=== PATIENT | male | born 1950 | race Caucasian/White ===

== ENCOUNTER 2025-04-14 17:52 | Observation (INO) ==
--- NOTE | 2025-04-14 18:30 | Emergency Department Note ---
Impression & Plan Stroke-like symptoms, Acute confusional state, Abnormal brain MRI, Elevated INR, MCI (mild cognitive impairment) ED Provider Note NAME: INGRIS FERGUSON AGE: 75 SEX: M : 1950 ARRIVES VIA: Walk-In INFORMANT: Patient ED PROVIDER(S): Sky Shaver MD CHIEF COMPLAINT: Acute confusion, stroke alert PLAN: Disposition: Admit MEDICAL DECISION MAKING: The patient is a pleasant 75-year-old gentleman with a past medical history of mild cognitive impairment, B12 deficiency, hypertension, hyperlipidemia, BPH who presents to the Emergency Department via walk-in accompanied by his for evaluation of acute onset confusion with last known well determined to be 2 PM. Patient's reports that at that time the patient told her he was going across the street to their newly purchased home where they are transferring their items from one house to the other. She reports that she noticed he was taking him in excess amount of time and went to check on him. However when she found him he was confused appearing staring blankly and would initially not respond/speak. Eventually he would speak but was confused about where he was. He then also complained of left-sided chest/shoulder pain while and route to the hospital but reports this had resolved upon arriving to triage. Given the patient's acute onset of symptoms stroke alert was activated And patient was taken immediately to CT for imaging. Upon completion of CT imaging it was determined that the patient was not a TNK candidate given he was outside of the TNK window given his last known well. Moreover his symptoms were rapidly improving. No clear large vessel occlusion and so telestroke monitor consultation was deferred. He was alert and oriented to self and place. His speech was fluent and was able to state that he lived in [place]. There was still some memory impairment where he could not recall his address which his reports he is usually able to do even in the setting of his diagnosis of mild cognitive impairment. They deny any regular alcohol use. On evaluation the patient no acute distress, afebrile blood pressure 150/70s and vital signs otherwise stable. He appears clinically dry. Mild memory impairment per above and otherwise cranial nerves II-XII grossly intact. 5/5 strength and SILT x 4 extremities. Cerebellar function intact including [id number], alternating palms, [id number]. EKG without overt acute ischemia. WBC and platelet within normal limits. H/H similar to prior values. Platelets within normal limits. Chemistry without metabolic acidosis. Sodium 133 and otherwise electrolytes and LFTs were unremarkable. High sensitivity troponin 6.7, within normal limits. INR was noted to be elevated at 1.9 despite no history or evidence of cirrhosis and not on anticoagulation. Given the patient's history of B12 deficiency suspect likely vitamin K deficiency. Vitamin K was ordered as a send out and is pending to inform outpatient follow- up. UA without evidence of infection. CT of the head and CTA of the head and neck radiology interpretation/reports were finalized and were negative for ischemia, severe narrowing or occlusion of large vessels. However, note is made of indeterminate nodular hyperdensity along the dorsal septum pellucidum. There is no associated vasogenic edema within the adjacent parenchyma and so hemorrhage is considered less likely but not completely excluded. Calcified lesion such as meningioma is considered. Additional small left subinsular white matter hypodensities are described. Small acute infarcts are not entirely excluded. Question of focal soft tissue scalp swelling is described though patient has no physical exam findings to suggest contusion. CTA of the chest also completed and was negative for acute aortic pathology. Coronary calcifications are described. Case was discussed with Dr. Villa, [facility] neurology on-call. Appreciate consultation recommendations. Agrees CT findings less likely to represent hemorrhage however agrees with follow-up imaging to characterize findings. Recommends MRI of the brain with and without contrast and he will review images to help inform final disposition of admission to our facility versus need for transfer. MRI of the brain subsequently completed and was reviewed by Dr. Villa. Findings are most consistent with calcified lesion within the septum pellucidum. Agrees patient can be admitted to our facility for further evaluation and management. Given context of the patient's symptoms with CT and MRI imaging showing component of atrophy and mildly enlarged ventricles seizure is considered. Recommends EEG in the morning. No need to initiate AED at this time unless the patient were to have a witnessed episode. Given elevated INR recommends holding aspirin for now. He will be available for inpatient team teleneurology consultation in the morning. Findings and plan were reviewed with the patient and his at the bedside. They agree with plan for admission for further management. Of note, in retrospect the patient did report to his today that he had "bumped" his head on a cabinet a couple days ago and has felt somewhat off since then. However his reports that she had noticed no change in his mentation or behavior up until this evening. Case was discussed with Dr. Nguyen [facility] hospitalist, who will evaluate the patient for admission. MRI of the brain report subsequently finalized and consistent with preliminary interpretation describing a small partially calcified and minimally enhancing lesion in the posterior septum pellucidum with differential that includes meningioma versus central neurocytoma. Further management per admitting team. Triage Nursing notes reviewed and agree them. Prior/external medical records reviewed Vital Signs: reviewed Differential diagnosis: Infection, dehydration, metabolic abnormality, hypo/hyperglycemia, electrolyte disturbance, anemia, hypoxia, cardiac sources, intracerebral event, toxicologic, neurologic, as well as other pathologies. ER treatment provided: See below. Diagnostics interpreted by me: ECG: Normal sinus rhythm, 71 bpm, no ectopy, no overt ST elevation or depression, QTc 436, QRS 86. Cardiac Monitoring: An order for continuous cardiac monitoring was placed and demonstrated normal sinus rhythm, 71 bpm, no ectopy. Laboratory studies: See below Imaging studies: See below Consultation(s): Dr. Villa, [facility] neurology on-call [facility]ada[facility] hospitalist. HPI: Per MDM. ROS: See above HPI for pertinent positives & negatives. A total of 10 systems reviewed and were otherwise negative. VITALS:See Below PHYSICAL EXAMINATION: GENERAL: Awake, alert,, in no distress HENT: Normocephalic, atraumatic. Oropharynx with dry mucous membranes and otherwise unremarkable. EYES: Normal conjunctiva. Sclera non-icteric. EOMI. No nystamgus. PEARRL. NECK: Supple. No nuchal rigidity. FROM. No JVD. RESPIRATORY: Clear to auscultation. CARDIAC: Regular rate, normal rhythm. Extremities warm and well perfused. Pulses equal. ABDOMEN: Soft, non-distended. No tenderness to palpation. No rebound or guarding. No masses. MUSCULOSKELETAL: Chest examination reveals no tenderness. The back is symmetrical on inspection without obvious abnormality. There is no CVA tenderness to palpation. No joint edema. LOWER EXTREMITIES: Calves are equal size bilaterally and non-tender. No edema. No discoloration. NEURO: Mild memory impairment with fluent speech. Cranial nerves II-XII grossly intact. 5/5 strength and SILT x 4 extremities. Cerebellar function intact including vbgjoe-[id number], alternating palms, ovqm-gr-pvvk. SKIN: No rash or jaundice noted. Sky Shaver MD Past Med/Surg History Problem List (Updated 04/15/25 @ 22:01 by Sky Shaver MD) Elevated INR (Acute) Abnormal brain MRI (Acute) Stroke-like symptoms (Acute) Seizure-like activity Brain lesion Concussion Acute confusional state (Acute) Hyponatremia Anemia Altered mental status, unspecified Vitamin B12 deficiency MCI (mild cognitive impairment) (Acute) CKD (chronic kidney disease) Status post spinal surgery (~2020) B/L L4-5 lumbar ,laminectomy, medial facetectomies, and foraminotomies Nocturia HTN (hypertension) CAD (coronary artery disease), [place] coronary artery (~1995) No family dentist. 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 Surgical History H/O colonoscopy 10/2016 repeat 10 yrs History of ankle surgery left > several yrs ago History of colonoscopy History of cardiac cath 1995> no stents Family History Father Lung cancer Denies family history of Ovarian cancer Prostate cancer Myocardial infarction Breast cancer Colorectal cancer Social History Smoking Status: Never smoker Second Hand Exposure: No; Do You Dip or Chew Tobacco: No; Hx Alcohol Use: No Hx Substance Use: No Preferred Language: Russian Communication Ability: Effective Visual Impairment: Limited Hearing Ability: Use of Hearing Aid Budget Record Clerk Required: No Beliefs That Will Affect Care: None marital status: Current Living Situation: Spouse current occupational status: retired How many Children do You have: 2 Feels Safe at Home: Yes Safety Concerns: Feels Safe At This Time Childhood Exposure to Second-Hand Smoke: Yes Diet: regular caffeine: Yes Dental Care, Regularly: Yes Physical Activity Frequency: 3-4 Times per Week Seatbelt Use: always Sunscreen Use: Yes Do you think of yourself as: straight/heterosexual Assistive Devices: None Allergies Allergies Allergy/AdvReac Type Severity Reaction Status Date / Time gabapentin Allergy Intermediate hives Verified 04/14/25 23:40 Sulfa (Sulfonamide Allergy Unknown Unknown Verified 04/14/25 23:40 Antibiotics) Home Meds Home Medications Medication Instructions Recorded Confirmed aspirin 81 mg tablet,delayed 81 mg PO DAILY 05/23/21 04/14/25 release (Adult Aspirin Regimen) vitamin B complex-folic acid ER tab PO 02/04/23 11/03/24 400 mcg tablet,extended release mecobalamin (vitamin B12) 1,000 500 mcg PO DAILY 02/05/23 04/14/25 mcg chewable tablet Previous Rx's Medication Instructions Recorded tamsulosin 0.4 mg capsule 0.4 mg PO DAILY #90 caps 06/30/24 lisinopril 5 mg tablet 5 mg PO DAILY #90 tabs 09/25/24 atorvastatin 80 mg tablet 80 mg PO DAILY #90 tabs 10/12/24 metoprolol succinate 50 mg 50 mg PO DAILY #90 tabs 12/31/24 tablet,extended release 24 hr Results & Data (ED) Vital Signs Vital Signs - 24 hr 04/14/25 22:00 04/14/25 22:58 04/14/25 23:00 Pulse Rate 68 Pulse Rate [Apical] 64 63 Respiratory Rate 17 18 Respiratory Effort / Characteristics Non-Labored Spontaneous Respiratory Depth Normal Respiratory Pattern Regular Blood Pressure [Right Arm] 133/73 129/73 Blood Pressure Mean [Right Arm] 93 91 Pulse Oximetry 96 98 Oxygen Delivery Method Room Air Room Air Laboratory Data Attestation: I reviewed the patient's lab results. 04/15/25 07:23 04/15/25 07:23 Lab Results 04/14/25 04/14/25 04/14/25 Range/Units 18:30 18:31 22:42 WBC 8.28 (4.8-10.8) K/ul RBC 4.06 L (4.70-6.10) M/uL Hgb 12.6 L (14.0-18.0) g/dl Hct 36.3 L (42.0-52.0) % MCV 89.4 (80.0-100.0) fL MCH 31.0 (25.0-34.0) pg MCHC 34.7 (32.0-36.0) g/dL RDW Std Deviation 41.7 (36.4-46.3) fL RDW Coeff of Terese 12.7 (11.5-14.5) % Plt Count 167 (130-400) K/uL MPV 8.9 L (9.4-12.4) fL Immature Gran % (Auto) 0.2 % Neut % (Auto) 79.6 % Lymph % (Auto) 12.4 % [place] % (Auto) 6.8 % Eos % (Auto) 0.6 % Baso % (Auto) 0.4 % Neut # (Auto) 6.59 H (1.40-6.50) K/uL Lymph # (Auto) 1.03 L (1.20-3.40) K/uL [place] # (Auto) 0.56 (0.11-0.59) K/uL Eos # (Auto) 0.05 (0.00-0.50) K/uL Baso # (Auto) 0.03 (0.00-0.20) K/uL Immature Gran # (Auto) 0.02 (0.01-0.20) K/uL PT 19.3 H 17.9 H (9.0-12.0) Seconds INR 1.9 H 1.7 H (0.9-1.1) APTT 27 (21-31) Seconds PTT Ratio 1.0 Sodium 133 L (136-145) mmol/L Potassium 4.0 (3.5-5.1) mmol/L Chloride 102 (98-107) mmol/L Carbon Dioxide 24 (21-32) mmol/L Anion Gap 7 (3-11) BUN 23 (6-23) mg/dl Creatinine 1.17 (0.6-1.4) mg/dl Est Cr Clr Drug Dosing 48.5 ml/min eGFR 64.61 BUN/Creatinine Ratio 19.7 (10-20) Glucose 98 (70-99(Fasting)) mg/dl POC Glucose 87 (70-99) mg/dl Calcium 8.7 (8.6-10.3) mg/dl Magnesium 1.7 (1.7-2.4) mg/dl Total Bilirubin 0.6 (0.2-1.0) mg/dl AST 20 (13-39) U/L ALT 20 (7-52) U/L Alkaline Phosphatase 37 (34-104) U/L Troponin I High Sens 6.7 (0-20) pg/ml Total Protein 6.3 (6.0-8.3) gm/dl Albumin 3.6 (3.4-5.0) gm/dl Globulin 2.7 (2.5-4.0) gm/dl Albumin/Globulin Ratio 1.3 (0.9-2) Administered Medications Acetaminophen (Acetaminophen 500 Mg Tab) 1,000 mg PO Q8H PRN PRN Reason: Pain or Fever Stop: 05/15/25 19:49 Last Admin: 04/15/25 20:10 Dose: 1,000 mg Documented By: HDC Aspirin (Aspirin 81 Mg Ectab) 81 mg PO DAILY MIRELA Stop: 05/15/25 08:59 Last Admin: 04/15/25 08:17 Dose: 81 mg Documented By: LMP Atorvastatin Calcium (Atorvastatin 40 Mg Tab) 80 mg PO DAILY MIRELA Stop: 05/15/25 08:59 Last Admin: 04/15/25 08:17 Dose: 80 mg Documented By: LMP Cyanocobalamin (Cyanocobalamin 1000 Mcg/Ml Vial) 1,000 mcg IM QAM MIRELA Stop: 04/19/25 09:01 Last Admin: 04/15/25 08:19 Dose: 1,000 mcg Documented By: LMP Lisinopril (Lisinopril 5 Mg Tab) 5 mg PO DAILY IMRELA Stop: 05/15/25 08:59 Last Admin: 04/15/25 08:18 Dose: 5 mg Documented By: LMP Discontinued Medications Gadobutrol (Gadobutrol 65ml Vial) 6.3 ml IV ONCE ONE Stop: 04/14/25 20:59 Last Admin: 04/14/25 20:59 Dose: 6.3 ml Documented By: [facility] Sodium Chloride (Nss) 1,000 mls @ 999 mls/hr IV .Q1H1M ONE Stop: 04/14/25 19:10 Last Infusion: 04/14/25 19:38 Dose: Infused Documented By: Admin: 04/14/25 18:33 Dose: 999 mls/hr Documented By: RANDY Ioversol (Optiray 320 125ml) 115 ml IV ONCE ONE Stop: 04/14/25 18:37 Last Admin: 04/14/25 18:36 Dose: 115 ml Documented By: [facility] Imaging Data Radiologist's Impression: Chest CTA 04/14/25 18:10 CT pulmonary angiogram without and with IV contrast. History: Severe left shoulder pain. Confusion. COMPARISON: Plain film correlate November 11, 2020. TECHNIQUE: CT angiography of the chest was performed without IV contrast followed by IV contrast, including 3D post processing CTA image reconstruction. FINDINGS: Pacs Administrator film demonstrates no appreciated abnormality. Lung windows demonstrate mild dependent subsegmental atelectasis. Lungs are otherwise clear. Soft tissue windows demonstrate dense calcified atherosclerotic changes coronary vasculature. Mild calcified atheromatous changes thoracic aorta without aneurysmal dilatation or dissection. Heart size is within normal limits. Pulmonary vasculature limited secondary to bolus timing. No gross abnormality at these levels. No pericardial or pleural effusions. No atheromatous changes included systemic vasculature. No acute process of the included upper abdomen. Bone windows demonstrate degenerative changes of the thoracic spine. No acute osseous process. IMPRESSION: 1. Mild atheromatous changes thoracic and included abdominal aorta without aneurysmal dilatation or dissection. 2. Dense calcified atherosclerotic changes coronary vasculature. No additional findings to indicate source of patient's symptoms. Electronically signed by Prince Mccullough 04-14-2025 7:10 PM Chest CTA 04/14/25 18:10 CT pulmonary angiogram without and with IV contrast. History: Severe left shoulder pain. Confusion. COMPARISON: Plain film correlate November 11, 2020. TECHNIQUE: CT angiography of the chest was performed without IV contrast followed by IV contrast, including 3D post processing CTA image reconstruction. FINDINGS: Pacs Administrator film demonstrates no appreciated abnormality. Lung windows demonstrate mild dependent subsegmental atelectasis. Lungs are otherwise clear. Soft tissue windows demonstrate dense calcified atherosclerotic changes coronary vasculature. Mild calcified atheromatous changes thoracic aorta without aneurysmal dilatation or dissection. Heart size is within normal limits. Pulmonary vasculature limited secondary to bolus timing. No gross abnormality at these levels. No pericardial or pleural effusions. No atheromatous changes included systemic vasculature. No acute process of the included upper abdomen. Bone windows demonstrate degenerative changes of the thoracic spine. No acute osseous process. IMPRESSION: 1. Mild atheromatous changes thoracic and included abdominal aorta without aneurysmal dilatation or dissection. 2. Dense calcified atherosclerotic changes coronary vasculature. No additional findings to indicate source of patient's symptoms. Electronically signed by Prince Mccullough 04-14-2025 7:[address] 04/14/25 18:10 EXAM: Head CT without contrast and CT angiogram of the head and neck. History: Patient complains that head feels tight. Confusion. Comparison: MR brain correlate February 15, 2022. Study report not available at the time of dictation. Technique: HEAD CT: Using multidetector thin collimation helical acquisition technique, axial, coronal and sagittal CT images from the skull base to the vertex were obtained without intravenous contrast. HEAD and NECK CTA: During rapid bolus intravenous injection of nonionic contrast material, axial images were obtained using thin collimation multidetector helical technique from the base of the neck through the of vertex of the head. This CT angiogram data was reconstructed at thin intervals with mild overlap. 3D reconstructions were obtained. The axial source images, multiplanar reformations, 3D reconstructions in both maximum intensity projection display and volume rendered models were reviewed. Dose reduction techniques were achieved by using automatic exposure control and/or adjustment of mA and/or kV according to patient size and/or use of iterative reconstruction technique. FINDINGS: Pacs Administrator film demonstrates no abnormality. Brain windows demonstrate there is a 1.3 cm greatest dimension focal hyperdensity along the posterior aspect of the septum pellucidum just ventral to the splenium of the corpus callosum. Ventricles and sulci are within normal limits for patient's age. Small hypodensities left subinsular white matter. These are nonspecific. No appreciable mass effect. Basal cisterns are patent. No additional hemorrhage, mass or acute large territorial infarct. No midline shift. Lung windows demonstrate clear included pulmonary apices. Soft tissue windows demonstrate prominent soft tissue volume and attenuation left parietal scalp. No discrete laceration or faustino hematoma. Vascular windows demonstrate portions of the exam to be limited secondary to dental amalgam artifact. Bilateral V4 segments are patent. Bilateral posterior inferior cerebellar arteries are patent. Basilar artery is patent. Bilateral posterior cerebral arteries are patent. Calcified atherosclerotic changes cavernous sinus internal carotid arteries. No appreciated significant hemodynamically flow-limiting disease. Anterior cerebral arteries are patent. Middle cerebral arteries are patent. Posterior communicating arteries are not identified. Normal 3 branches of the thoracic aorta noted. Dominant left vertebral artery. Bilateral vertebral arteries are patent. Moderate calcified atheromatous plaque right carotid bulb. No flow-limiting disease. Additional mild calcified atheromatous plaque left carotid vasculature. Bilateral common carotid, internal carotid and external carotid arteries are otherwise patent. Although limited due to bolus timing major dural venous sinuses are patent. No discrete abnormal intracranial enhancement. Particular at the level of the above-described posterior septum pellucid him hyperdensity. Bone windows demonstrate multilevel degenerative changes of the spine. Moderate spinal canal and moderate to marked foraminal stenoses. Impression: 1. Indeterminant nodular hyperdensity along the dorsal septum pellucidum. Focal hemorrhage cannot be excluded. Meningioma not excluded. Consider 6-hour follow-up noncontrast head CT or MRI. 2. Small left subinsular white matter hypodensities. These are nonspecific. Small acute infarcts cannot entirely be excluded. No appreciable mass effect. MRI would be helpful for further characterization. 3. No large vessel occlusion. 4. Calcified atheromatous plaque systemic neck vasculature without significant flow-limiting disease. 5. Hypoplastic bilateral posterior communicating arteries. Intracranial systemic vasculature is otherwise patent. 6. Although limited due to bolus timing no discrete enhancement of the above-described posterior septum pellucidum nodular hyperdensity. 7. Focal area of soft tissue scalp swelling left parietal region. No radiopaque foreign body or discrete laceration. Correlate with prior trauma history. 8. Multilevel degenerative changes of the spine. Moderate spinal canal and moderate to marked foraminal stenoses. MRI would be helpful for further characterization. Critical results were discussed with Dr. Shaver on April 14, 2025 at 1755 hrs. Central standard time. The study was analyzed using artificial intelligence software for large vessel occlusion detection. Electronically signed by Prince Mccullough 04-14-2025 7:02 PM Head CTA 04/14/25 18:10 EXAM: Head CT without contrast and CT angiogram of the head and neck. History: Patient complains that head feels tight. Confusion. Comparison: MR brain correlate February 15, 2022. Study report not available at the time of dictation. Technique: HEAD CT: Using multidetector thin collimation helical acquisition technique, axial, coronal and sagittal CT images from the skull base to the vertex were obtained without intravenous contrast. HEAD and NECK CTA: During rapid bolus intravenous injection of nonionic contrast material, axial images were obtained using thin collimation multidetector helical technique from the base of the neck through the of vertex of the head. This CT angiogram data was reconstructed at thin intervals with mild overlap. 3D reconstructions were obtained. The axial source images, multiplanar reformations, 3D reconstructions in both maximum intensity projection display and volume rendered models were reviewed. Dose reduction techniques were achieved by using automatic exposure control and/or adjustment of mA and/or kV according to patient size and/or use of iterative reconstruction technique. FINDINGS: Pacs Administrator film demonstrates no abnormality. Brain windows demonstrate there is a 1.3 cm greatest dimension focal hyperdensity along the posterior aspect of the septum pellucidum just ventral to the splenium of the corpus callosum. Ventricles and sulci are within normal limits for patient's age. Small hypodensities left subinsular white matter. These are nonspecific. No appreciable mass effect. Basal cisterns are patent. No additional hemorrhage, mass or acute large territorial infarct. No midline shift. Lung windows demonstrate clear included pulmonary apices. Soft tissue windows demonstrate prominent soft tissue volume and attenuation left parietal scalp. No discrete laceration or faustino hematoma. Vascular windows demonstrate portions of the exam to be limited secondary to dental amalgam artifact. Bilateral V4 segments are patent. Bilateral posterior inferior cerebellar arteries are patent. Basilar artery is patent. Bilateral posterior cerebral arteries are patent. Calcified atherosclerotic changes cavernous sinus internal carotid arteries. No appreciated significant hemodynamically flow-limiting disease. Anterior cerebral arteries are patent. Middle cerebral arteries are patent. Posterior communicating arteries are not identified. Normal 3 branches of the thoracic aorta noted. Dominant left vertebral artery. Bilateral vertebral arteries are patent. Moderate calcified atheromatous plaque right carotid bulb. No flow-limiting disease. Additional mild calcified atheromatous plaque left carotid vasculature. Bilateral common carotid, internal carotid and external carotid arteries are otherwise patent. Although limited due to bolus timing major dural venous sinuses are patent. No discrete abnormal intracranial enhancement. Particular at the level of the above-described posterior septum pellucid him hyperdensity. Bone windows demonstrate multilevel degenerative changes of the spine. Moderate spinal canal and moderate to marked foraminal stenoses. Impression: 1. Indeterminant nodular hyperdensity along the dorsal septum pellucidum. Focal hemorrhage cannot be excluded. Meningioma not excluded. Consider 6-hour follow-up noncontrast head CT or MRI. 2. Small left subinsular white matter hypodensities. These are nonspecific. Small acute infarcts cannot entirely be excluded. No appreciable mass effect. MRI would be helpful for further characterization. 3. No large vessel occlusion. 4. Calcified atheromatous plaque systemic neck vasculature without significant flow-limiting disease. 5. Hypoplastic bilateral posterior communicating arteries. Intracranial systemic vasculature is otherwise patent. 6. Although limited due to bolus timing no discrete enhancement of the above-described posterior septum pellucidum nodular hyperdensity. 7. Focal area of soft tissue scalp swelling left parietal region. No radiopaque foreign body or discrete laceration. Correlate with prior trauma history. 8. Multilevel degenerative changes of the spine. Moderate spinal canal and moderate to marked foraminal stenoses. MRI would be helpful for further characterization. Critical results were discussed with Dr. Shaver on April 14, 2025 at 1755 hrs. Central standard time. The study was analyzed using artificial intelligence software for large vessel occlusion detection. Electronically signed by Prince Mccullough 04-14-2025 7:03 PM Neck CTA 04/14/25 18:10 EXAM: Head CT without contrast and CT angiogram of the head and neck. History: Patient complains that head feels tight. Confusion. Comparison: MR brain correlate February 15, 2022. Study report not available at the time of dictation. Technique: HEAD CT: Using multidetector thin collimation helical acquisition technique, axial, coronal and sagittal CT images from the skull base to the vertex were obtained without intravenous contrast. HEAD and NECK CTA: During rapid bolus intravenous injection of nonionic contrast material, axial images were obtained using thin collimation multidetector helical technique from the base of the neck through the of vertex of the head. This CT angiogram data was reconstructed at thin intervals with mild overlap. 3D reconstructions were obtained. The axial source images, multiplanar reformations, 3D reconstructions in both maximum intensity projection display and volume rendered models were reviewed. Dose reduction techniques were achieved by using automatic exposure control and/or adjustment of mA and/or kV according to patient size and/or use of iterative reconstruction technique. FINDINGS: Pacs Administrator film demonstrates no abnormality. Brain windows demonstrate there is a 1.3 cm greatest dimension focal hyperdensity along the posterior aspect of the septum pellucidum just ventral to the splenium of the corpus callosum. Ventricles and sulci are within normal limits for patient's age. Small hypodensities left subinsular white matter. These are nonspecific. No appreciable mass effect. Basal cisterns are patent. No additional hemorrhage, mass or acute large territorial infarct. No midline shift. Lung windows demonstrate clear included pulmonary apices. Soft tissue windows demonstrate prominent soft tissue volume and attenuation left parietal scalp. No discrete laceration or faustino hematoma. Vascular windows demonstrate portions of the exam to be limited secondary to dental amalgam artifact. Bilateral V4 segments are patent. Bilateral posterior inferior cerebellar arteries are patent. Basilar artery is patent. Bilateral posterior cerebral arteries are patent. Calcified atherosclerotic changes cavernous sinus internal carotid arteries. No appreciated significant hemodynamically flow-limiting disease. Anterior cerebral arteries are patent. Middle cerebral arteries are patent. Posterior communicating arteries are not identified. Normal 3 branches of the thoracic aorta noted. Dominant left vertebral artery. Bilateral vertebral arteries are patent. Moderate calcified atheromatous plaque right carotid bulb. No flow-limiting disease. Additional mild calcified atheromatous plaque left carotid vasculature. Bilateral common carotid, internal carotid and external carotid arteries are otherwise patent. Although limited due to bolus timing major dural venous sinuses are patent. No discrete abnormal intracranial enhancement. Particular at the level of the above-described posterior septum pellucid him hyperdensity. Bone windows demonstrate multilevel degenerative changes of the spine. Moderate spinal canal and moderate to marked foraminal stenoses. Impression: 1. Indeterminant nodular hyperdensity along the dorsal septum pellucidum. Focal hemorrhage cannot be excluded. Meningioma not excluded. Consider 6-hour follow-up noncontrast head CT or MRI. 2. Small left subinsular white matter hypodensities. These are nonspecific. Small acute infarcts cannot entirely be excluded. No appreciable mass effect. MRI would be helpful for further characterization. 3. No large vessel occlusion. 4. Calcified atheromatous plaque systemic neck vasculature without significant flow-limiting disease. 5. Hypoplastic bilateral posterior communicating arteries. Intracranial systemic vasculature is otherwise patent. 6. Although limited due to bolus timing no discrete enhancement of the above-described posterior septum pellucidum nodular hyperdensity. 7. Focal area of soft tissue scalp swelling left parietal region. No radiopaque foreign body or discrete laceration. Correlate with prior trauma history. 8. Multilevel degenerative changes of the spine. Moderate spinal canal and moderate to marked foraminal stenoses. MRI would be helpful for further characterization. Critical results were discussed with Dr. Shaver on April 14, 2025 at 1755 hrs. Central standard time. The study was analyzed using artificial intelligence software for large vessel occlusion detection. Electronically signed by Prince Mccullough 04-14-2025 7:03 PM Brain MRI 04/14/25 20:06 Exam(s): MRI HEAD W/WO Contrast IV Amt: 6.3cc gadavist EXAM: MR Head Without and With Intravenous Contrast CLINICAL HISTORY: Reason for exam: stroke like sx/confusion, eval hyperdensity. OTHER: Other Notes: 6.3CC GADAVIST INJ. LEFT IV AT 2054 HRS. BY CMP R/O CVA CONFUSION PROP SCANS FOR MOTION TECHNIQUE: Magnetic resonance images of the head/brain without and with intravenous contrast in multiple planes. CONTRAST: Patient received 6.3cc gadavist of IV contrast COMPARISON: Prior head CT from April 14, 2025. FINDINGS: Brain: There is a partially calcified soft tissue lesion in the posterior septum pellucidum with minimal enhancement. No hemorrhage. No acute infarct. The flow voids at the base the brain are intact. No evidence of abnormal enhancement. The dural venous sinuses are patent. Ventricles: Unremarkable advanced ventriculomegaly. Bones/joints: Unremarkable. No acute fracture. Sinuses: Chronic ethmoid sinusitis. No acute sinusitis. Mastoid air cells: Unremarkable as visualized. No mastoid effusion. Orbits: Unremarkable as visualized. IMPRESSION: No evidence of acute intracranial pathology. Small partially calcified and minimally enhancing lesion in the posterior septum pellucidum. The differential diagnosis includes atypical meningioma or central neurocytoma. Electronically signed by: Nola Johnson MD 04/14/25 22:36 PM Discharge Plan Visit Data Chief Complaint: Arm Pain Stated Complaint: PAIN IN LT ARM CONFUSED ED Provider: Sky Shaver Discharge Problem: Stroke-like symptoms, Acute confusional state, Abnormal brain MRI, Elevated INR, MCI (mild cognitive impairment) Patient Disposition: Admitted As Inpatient Condition: Fair Discharge Instructions Interventions: ED Discharge Assessment Last Done: 04/15/25 00:55
[2025-04-14] MEDS: SODIUM CHLORIDE 0.9% 1,000 ML IV ONE (18:33)
[2025-04-14] MEDS: OPTIRAY 320 125ml IV ONE (18:36)
[2025-04-14 18:42] LABS: Hematocrit (blood only) 36.3 % (42.0-52.0); Hemoglobin 12.6 g/dl (14.0-18.0); Immature Granulocytes # (auto) 0.02 K/uL (0.01-0.20); Immature Granulocytes % (auto) 0.2 %; Mean Corpuscular Hemoglobin 31.0 pg (25.0-34.0); Mean Corpuscular Volume 89.4 fL (80.0-100.0); Platelet Count 167 K/uL (130-400); RDW Standard Deviation 41.7 fL (36.4-46.3); Red Blood Count 4.06 M/uL (4.70-6.10); White Blood Count 8.28 K/ul (4.8-10.8)
[2025-04-14 18:59] LABS: Alanine Aminotransferase 20.0 U/L (7-52); Albumin Globulin Ratio 1.3 (0.9-2); Albumin Level 3.6 gm/dl (3.4-5.0); Alkaline Phosphatase 37.0 U/L (34-104); Anion Gap 7.0 (3-11); Bilirubin,Total 0.6 mg/dl (0.2-1.0); Blood Urea Nitrogen 23.0 mg/dl (6-23); Calcium 8.7 mg/dl (8.6-10.3); Carbon Dioxide 24.0 mmol/L (21-32); Chloride 102.0 mmol/L (98-107); Creatinine Clr Calc Pharmacy 48.5 ml/min; Globulin 2.7 gm/dl (2.5-4.0); Glucose 98.0 mg/dl (70-99(Fasting)); Magnesium 1.7 mg/dl (1.7-2.4); Potassium 4.0 mmol/L (3.5-5.1); Sodium 133.0 mmol/L (136-145); Total Protein 6.3 gm/dl (6.0-8.3)
--- NOTE | 2025-04-14 19:04 | CT Scan Report ---
EXAM: Head CT without contrast and CT angiogram of the head and neck. History: Patient complains that head feels tight. Confusion. Comparison: MR brain correlate February 15, 2022. Study report not available at the time of dictation. Technique: HEAD CT: Using multidetector thin collimation helical acquisition technique, axial, coronal and sagittal CT images from the skull base to the vertex were obtained without intravenous contrast. HEAD and NECK CTA: During rapid bolus intravenous injection of nonionic contrast material, axial images were obtained using thin collimation multidetector helical technique from the base of the neck through the of vertex of the head. This CT angiogram data was reconstructed at thin intervals with mild overlap. 3D reconstructions were obtained. The axial source images, multiplanar reformations, 3D reconstructions in both maximum intensity projection display and volume rendered models were reviewed. Dose reduction techniques were achieved by using automatic exposure control and/or adjustment of mA and/or kV according to patient size and/or use of iterative reconstruction technique. 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 Brain windows demonstrate there is a 1.3 cm greatest dimension focal hyperdensity along the posterior aspect of the septum pellucidum just ventral to the splenium of the corpus callosum. Ventricles and sulci are within normal limits for patient's age. Small hypodensities left subinsular white matter. These are nonspecific. No appreciable mass effect. Basal cisterns are patent. No additional hemorrhage, mass or acute large territorial infarct. No midline shift. Lung windows demonstrate clear included pulmonary apices. Soft tissue windows demonstrate prominent soft tissue volume and attenuation left parietal scalp. No discrete laceration or faustino hematoma. Vascular windows demonstrate portions of the exam to be limited secondary to dental amalgam artifact. Bilateral V4 segments are patent. Bilateral posterior inferior cerebellar arteries are patent. Basilar artery is patent. Bilateral posterior cerebral arteries are patent. Calcified atherosclerotic changes cavernous sinus internal carotid arteries. No appreciated significant hemodynamically flow-limiting disease. Anterior cerebral arteries are patent. Middle cerebral arteries are patent. Posterior communicating arteries are not identified. Normal 3 branches of the thoracic aorta noted. Dominant left vertebral artery. Bilateral vertebral arteries are patent. Moderate calcified atheromatous plaque right carotid bulb. No flow-limiting disease. Additional mild calcified atheromatous plaque left carotid vasculature. Bilateral common carotid, internal carotid and external carotid arteries are otherwise patent. Although limited due to bolus timing major dural venous sinuses are patent. No discrete abnormal intracranial enhancement. Particular at the level of the above-described posterior septum pellucid him hyperdensity. Bone windows demonstrate multilevel degenerative changes of the spine. Moderate spinal canal and moderate to marked foraminal stenoses. Impression: 1. Indeterminant nodular hyperdensity along the dorsal septum pellucidum. Focal hemorrhage cannot be excluded. Meningioma not excluded. Consider 6-hour follow-up noncontrast head CT or MRI. 2. Small left subinsular white matter hypodensities. These are nonspecific. Small acute infarcts cannot entirely be excluded. No appreciable mass effect. MRI would be helpful for further characterization. 3. No large vessel occlusion. 4. Calcified atheromatous plaque systemic neck vasculature without significant flow-limiting disease. 5. Hypoplastic bilateral posterior communicating arteries. Intracranial systemic vasculature is otherwise patent. 6. Although limited due to bolus timing no discrete enhancement of the above-described posterior septum pellucidum nodular hyperdensity. 7. Focal area of soft tissue scalp swelling left parietal region. No radiopaque foreign body or discrete laceration. Correlate with prior trauma history. 8. Multilevel degenerative changes of the spine. Moderate spinal canal and moderate to marked foraminal stenoses. MRI would be helpful for further characterization. Critical results were discussed with Dr. Shaver on April 14, 2025 at 1755 hrs. Central standard time. The study was analyzed using artificial intelligence software for large vessel occlusion detection. Electronically signed by Prince Mccullough 04-14-2025 7:03 PM
--- NOTE | 2025-04-14 19:11 | CT Scan Report ---
CT pulmonary angiogram without and with IV contrast. History: Severe left shoulder pain. Confusion. COMPARISON: Plain film correlate November 11, 2020. TECHNIQUE: CT angiography of the chest was performed without IV contrast followed by IV contrast, including 3D post processing CTA image reconstruction. FINDINGS: Precision Thread Grinder Operator film demonstrates no appreciated abnormality. Lung windows demonstrate mild dependent subsegmental atelectasis. Lungs are otherwise clear. Soft tissue windows demonstrate dense calcified atherosclerotic changes coronary vasculature. Mild calcified atheromatous changes thoracic aorta without aneurysmal dilatation or dissection. Heart size is within normal limits. Pulmonary vasculature limited secondary to bolus timing. No gross abnormality at these levels. No pericardial or pleural effusions. No atheromatous changes included systemic vasculature. No acute process of the included upper abdomen. Bone windows demonstrate degenerative changes of the thoracic spine. No acute osseous process. IMPRESSION: 1. Mild atheromatous changes thoracic and included abdominal aorta without aneurysmal dilatation or dissection. 2. Dense calcified atherosclerotic changes coronary vasculature. No additional findings to indicate source of patient's symptoms. Electronically signed by Prince Mccullough 04-14-2025 7:10 PM
[2025-04-14 19:12] LABS: INR 1.9 (0.9-1.1); Partial Thromboplastin Time 27 Seconds (21-31); Prothrombin Time 19.3 Seconds (9.0-12.0)
[2025-04-14 19:57] LABS: Appearance Urine Clear (Clear); Glucose Urine UA Negative (Negative)
[2025-04-14] MEDS: GADOBUTROL 65ML VIAL IV ONE (20:59)
--- NOTE | 2025-04-14 21:54 | Neurology Consultation ---
Date of Consultation April 14, 2025 (955PM) Neurology Phone Note Assessment & Plan (1) Acute confusional state: 1. Acute confusional state, of undetermined etiology. Concern for partial seizure/post-ictal state. No evidence to suggest acute ischemic stroke. 2. Probable incidental midline posterior septum pellucidum region soft tissue lesion (? meningioma vs. other etiologies), per current CT(brain) and MRI(brain). 3. Reported mild cognitive impairment (MCI) history. Plan Recommendations: 1. Acute to hospital for further evaluation/management. Close neuro checks per protocol. Seizure/fall precautions. 2. Obtain routine EEG study in AM, to assess for any subclinical epileptiform activity. 3. Check additional metabolic labs regarding confusion. Follow serum Na closely. 4. Hold on anticonvulsant Rx at this point. 5. Follow-up on PT/PTT, with current INR 1.9. Hold low-dose aspirin Rx for now, until follow-up labs are obtained/reviewed. 6. TeleNeurology consult in AM. 7. Patient can also follow-up with [facility] Neurosurgery (? in-person visit vs. telehealth visit) regarding the incidental midline brain abnormality, which we can arrange after hospital discharge. Thank you for the TeleNeurology consult. If there are further questions or issues/concerns, please re-contact me. Total Time Spent: 60 minutes [reviewing current brain/vascular imaging studies, patient's EHR records and other diagnostic studies/labs, coordinating care with the ED physician, plus documentation]. Jose Roberto Villa MD Telehealth Consultation Telehealth Information Telehealth Information: Neurology Phone Consult: I performed this visit using a real-time telehealth connection between my location and the patients originating location ([facility]). History of Present Illness Reason for Consultation: Abnormal CT(brain) - ? meningioma vs. small acute posterior midline ICH Acute confusional state Requesting Physician: Dr. Shaver Attending Physician: Dr. Shaver History of Present Illness 75 year-old male, with acute confusional state, starting at approx. 2PM today [found by family]. No reported specific precipitating factors. No reported fall or head injury. Brought to the ED for further evaluation/management. Confusion reportedly decreased in the ED, and no reported focal sensorimotor deficits per ED physician. No witnessed overt seizure-type activity. No reported TIA/stroke history. On low-dose aspirin Rx (no reported anticoagulant Rx). No reported seizure history. History notable for mild cognitive impairment (MCI) per record review. Non-contrast CT(brain) and head/neck CTA studies were obtained. CT(brain) revealed small hyperdense abnormality in midline posterior septum pellucidum region (anterior to splenium of corpus callosum), which could represent small acute ICH vs. hyperdense lesion/? meningioma. CTA studies didn't reveal any evident significant abnormalities/large vessel occlusion. Allergies Allergy/AdvReac Type Severity Reaction Status Date / Time gabapentin Allergy Intermediate hives Verified 04/14/25 23:40 Sulfa (Sulfonamide Allergy Unknown Unknown Verified 04/14/25 23:40 Antibiotics) Home Medications Medication Instructions Recorded Confirmed Type aspirin 81 mg tablet,delayed 81 mg PO DAILY 05/23/21 04/14/25 History release (Adult Aspirin Regimen) vitamin B complex-folic acid ER tab PO 02/04/23 11/03/24 History 400 mcg tablet,extended release mecobalamin (vitamin B12) 1,000 500 mcg PO DAILY 02/05/23 04/14/25 History mcg chewable tablet tamsulosin 0.4 mg capsule 0.4 mg PO DAILY #90 caps 06/30/24 11/03/24 Rx lisinopril 5 mg tablet 5 mg PO DAILY #90 tabs 09/25/24 04/14/25 Rx atorvastatin 80 mg tablet 80 mg PO DAILY #90 tabs 10/12/24 04/14/25 Rx metoprolol succinate 50 mg 50 mg PO DAILY #90 tabs 12/31/24 Rx tablet,extended release 24 hr Patient History Medical History Sensorineural hearing loss (SNHL) of both ears Sensorineural hearing loss (SNHL) of left ear with restricted hearing of right ear Neck pain Degenerative disc disease 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 Surgical History H/O colonoscopy 10/2016 repeat 10 yrs History of ankle surgery left > several yrs ago History of colonoscopy History of cardiac cath 1995> no stents Family History Father Lung cancer Denies family history of Ovarian cancer Prostate cancer Myocardial infarction Breast cancer Colorectal cancer Social History Smoking Status: Never smoker Second Hand Exposure: No; Do You Dip or Chew Tobacco: No; Hx Alcohol Use: No Hx Substance Use: No Preferred Language: Setswana Communication Ability: Effective Visual Impairment: Limited Hearing Ability: Use of Hearing Aid Coal Hiker Required: No Beliefs That Will Affect Care: None marital status: Current Living Situation: Spouse current occupational status: retired How many Children do You have: 2 Feels Safe at Home: Yes Childhood Exposure to Second-Hand Smoke: Yes Diet: regular caffeine: Yes Dental Care, Regularly: Yes Physical Activity Frequency: 3-4 Times per Week Seatbelt Use: always Sunscreen Use: Yes Do you think of yourself as: straight/heterosexual Assistive Devices: None Results & Data Vital Signs (Past 12 Hours) Vital Signs Temp Pulse Pulse Resp BP BP Pulse Ox 04/14/25 19:40 71 20 118/78 97 04/14/25 19:12 71 04/14/25 18:28 74 17 150/76 H 100 04/14/25 17:59 36.6 C 68 18 150/73 H 98 O2 Del Method 04/14/25 19:40 Room Air 04/14/25 19:12 04/14/25 18:28 Room Air 04/14/25 17:59 Room Air Laboratory Results Various labs were reviewed. Notable for Na 133 and INR 1.9 (not reportedly on a nticoagulant Rx). Diagnostic Findings Current non-contrast CT(brain) plus head/neck CTA studies were personally reviewed. CT(brain) was notable for small hyperdense abnormality in midline posterior septum pellucidum region (anterior to splenium of corpus callosum), which could represent small acute ICH vs. hyperdense lesion/? meningioma. Head/neck CTA studies didn't reveal any evident significant large artery stenoses or occlusions. Subsequent unenhanced/enhanced MRI(brain) with stroke protocol was also personally reviewed. Again noted was the small midline posterior septum pellucidum region abnormality, most consistent with a soft tissue lesion (? meningioma vs. other etiologies) and not acute ICH. There was no evident notable abnormal enhancement in this area, or local mass effect/edema. There was also notable modest generalized cerebral atrophy and secondary ventriculomegaly (no evidence to suggest hydrocephalus). There were no evident acute ischemic stroke findings (negative DWI sequence). Total Time Total Time Spent (In Minutes): 60
--- NOTE | 2025-04-14 22:37 | Magnetic Resonance Report ---
Exam(s): MRI HEAD W/WO Contrast IV Amt: 6.3cc gadavist EXAM: MR Head Without and With Intravenous Contrast CLINICAL HISTORY: Reason for exam: stroke like sx/confusion, eval hyperdensity. OTHER: Other Notes: 6.3CC GADAVIST INJ. LEFT IV AT 2053 HRS. BY CMP R/O CVA CONFUSION PROP SCANS FOR MOTION TECHNIQUE: Magnetic resonance images of the head/brain without and with intravenous contrast in multiple planes. CONTRAST: Patient received 6.3cc gadavist of IV contrast COMPARISON: Prior head CT from April 14, 2025. FINDINGS: Brain: There is a partially calcified soft tissue lesion in the posterior septum pellucidum with minimal enhancement. No hemorrhage. No acute infarct. The flow voids at the base the brain are intact. No evidence of abnormal enhancement. The dural venous sinuses are patent. Ventricles: Unremarkable advanced ventriculomegaly. Bones/joints: Unremarkable. No acute fracture. Sinuses: Chronic ethmoid sinusitis. No acute sinusitis. Mastoid air cells: Unremarkable as visualized. No mastoid effusion. Orbits: Unremarkable as visualized. IMPRESSION: No evidence of acute intracranial pathology. Small partially calcified and minimally enhancing lesion in the posterior septum pellucidum. The differential diagnosis includes atypical meningioma or central neurocytoma. Electronically signed by: Nola Johnson MD 04/14/25 22:36 PM
--- NOTE | 2025-04-14 22:51 | History & Physical Report ---
Date of Service April 14, 2025 Assessment & Plan (1) Altered mental status, unspecified: (2) Anemia: (3) Vitamin B12 deficiency: (4) Hyponatremia: Plan 75-year-old male PMHx HTN, CAD, HLD, CAD, MCI, and BPH presenting for concerns of confusion as reported by the patient's at 1400. His evaluation is without significant electrolyte abnormalities with exception of slight anemia at 12.6/36.3, slightly elevated coagulation studies at 19.3/1.9 (PT/INR), and sodium of 133. Imaging of the chest shows atherosclerotic changes without aneurysmal dilatation or dissection. Head imaging (CT/CTA/MRI) with findings concerning of enhancing lesion in the posterior septum pellucidum, concern for atypical meningioma versus central neurocytoma per read. Admission for further workup, rule out seizure. #AMS/? Seizure Last known well 1400 per patient's . No prior history of CVA/TIA or seizures. Pt did hit his head ~ 2 days [employer]CR[employer], had felt dizzy and "fell into something, did not fall down", having some pain L head since. MCI at baseline. Without focal deficits. No infection identified at admission. History of Vitamin B12 deficiency, possibly impacting mental state, pending this level. ? post concussive vs ? seizure. Admission for further evaluation. - CBC without leukocytosis/leukopenia, H/H 12.6/36.3; PT/INR 19.3/1.9 (pending Vit K); CMP Na 133; trop 6.7; TSH pending - CBC, INR am - UA without infection - EKG NSR, no ischemic changes - Chest CTA mild arthromatous changes without aneurysmal dilatation or dissection - Head CT/CTA, neck CTA nodular hyperdensity along dorsal septum pellucidum, small L subinsular white matter hypodensities, no LVO, calcified atheromatous plaque systemic neck vasculature, hypoplastic bilateral posterior communicating arteries, focal area soft tissue scalp swelling L parietal region, multilevel degenerative changes spine - MRI brain no acute pathology, small lesion posterior septum pellucidum (? meningioma or central neurocytoma) - Seizure precautions, fall precautions - EEG pending am - Neuro consulted - appreciate input + recs #Anemia/Vitamin B12 deficiency Documented history of Vitamin B12 deficiency, takes 500 mcg orally each day. No recent bleeding. ? impact on mentation, pending levels but started on supplementation prophylactically. - CBC H/H 12.6/36.3 - trend CBC am - Iron panel, ferritin, vitamin B12, folate pending - Start vitamin B12 injections for total 5 doses, first 04/15/2025 -- Vit B12 1,000 mcg IM daily x 5 then transition to oral dose of 1,000 mcg #Hyponatremia Glucose WNL, received 500 mL NSS in ED. - Na 133 - BMP am - Serum osmol, urine Na, urine osmol pending - Allow oral intake, add IVF as appropriate #CAD- ASA - continue #HLD- Atorvastatin - continue #HTN- Lisinopril, ? metoprolol - continue lisinopril, then metoprolol once confirmed #BPH- ? Tamsulosin - continue once confirmed Dispo: Admit, PCU VTE prophylaxis: SCDs This document was dictated utilizing [employer]. Please excuse any grammatical errors that may be secondary to use of this software. Admission and Anticipated Discharge Date Admission Date: 04/14/2025 History of Present Illness Chief Complaint: AMS Primary Care Provider: Ovidio Lin, 75-year-old male PMHx HTN, CAD, HLD, CAD, MCI, and BPH presenting for concerns of confusion as reported by the patient's at 1400. Patient's , Sahra, helps to provide a majority of the history. States that the patient was in normal health and acting as expected throughout the morning of arrival. They had recently moved out of their old home and moved 10 houses down to a new home, so they are still in the process of moving items from 1 building to the next. His states that at 1400 the patient decided that he was going to drive down to the old house to collect some items to bring back to the new house. She recalls that approximately 2 hours after he had initially left, she was concerned because she had not heard from him or seeing the vehicle. She called him at approximately 1600 and the patient stated "I do not know where I am at, my head feels off". She went to find the patient and called the ambulance room to the hospital. He states he does not remember any events leading up to or following this lapse in memory, stating that the next thing he remembered was being at the hospital. He still feels slightly confused at present, but his states that he has been improving some. He does admit that approximately 2 days [employer] he was dealing with dizziness, described as vertigo, and he remembers hitting the left side of his head. He is unable to tell me if he fell and hit his head or if he smacked his head off of something else, he just states that it was hurting him after that. He also complains of posterior L shoulder pain that is rather pinpoint to 1 area, but again does not remember hitting this region. His states that throughout this episode she did not notice any jerking-like movements to indicate a seizure, no lipsmacking or auditory expressions. No facial droop or dysarthria noted. The patient was without focal deficits throughout this time. He stated that he possibly felt overall weak but this was around a day prior to the arrival. He is without chest pain, shortness of breath, palpitations, abdominal pain, N/V/D/C, numbness/tingling, fever/chills, URI symptoms, LUTS, syncope, known fall, weight loss, headaches, or night sweats. He has never had this happen before. No prior CVA/TIA, no history of seizures. ED evaluation revealed CBC without leukocytosis or leukopenia, H&H 12.6/36.3; PT/INR 19.3/1.9; CMP sodium 133; troponin 6.7; UA without infection; chest CTA mild atheromatous changes thoracic and included abdominal aorta without aneurysmal dilatation or dissection, dense calcified atherosclerotic changes coronary vasculature; head CT/CTA head and neck CTA indeterminate nodular hyperdensity along dorsal septum pellucidum, focal hemorrhage not excluded, meningioma not excluded, small L subinsular white matter hypodensities, no large vessel occlusion, calcified atheromatous plaque systemic neck vasculature without significant flow-limiting disease, hypoplastic bilateral posterior communicating arteries, focal area of soft tissue scalp swelling L parietal region, multilevel degenerative changes of the spine; brain MRI no evidence of acute intracranial pathology, small partially calcified minimally enhancing lesion in the posterior septum pellucidum (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 Please see Dr. Nguyen's attestation for adjustments/additions to treatment plan. Allergies Allergy/AdvReac Type Severity Reaction Status Date / Time gabapentin Allergy Intermediate hives Verified 04/14/25 23:40 Sulfa (Sulfonamide Allergy Unknown Unknown Verified 04/14/25 23:40 Antibiotics) Home Medications Medication Instructions Recorded Confirmed Type aspirin 81 mg tablet,delayed 81 mg PO DAILY 05/23/21 04/14/25 History release (Adult Aspirin Regimen) vitamin B complex-folic acid ER tab PO 02/04/23 11/03/24 History 400 mcg tablet,extended release mecobalamin (vitamin B12) 1,000 500 mcg PO DAILY 02/05/23 04/14/25 History mcg chewable tablet tamsulosin 0.4 mg capsule 0.4 mg PO DAILY #90 caps 06/30/24 11/03/24 Rx lisinopril 5 mg tablet 5 mg PO DAILY #90 tabs 09/25/24 04/14/25 Rx atorvastatin 80 mg tablet 80 mg PO DAILY #90 tabs 10/12/24 04/14/25 Rx metoprolol succinate 50 mg 50 mg PO DAILY #90 tabs 12/31/24 Rx tablet,extended release 24 hr Past Med/Surg History Problem List (Updated 04/14/25 @ 23:50 by Sammie Peng PA-C) Hyponatremia Anemia Altered mental status, unspecified Vitamin B12 deficiency MCI (mild cognitive impairment) CKD (chronic kidney disease) Status post spinal surgery (~2020) B/L L4-5 lumbar ,laminectomy, medial facetectomies, and foraminotomies Nocturia HTN (hypertension) CAD (coronary artery disease), [place] coronary artery (~1995) 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 Surgical History H/O colonoscopy 10/2016 repeat 10 yrs History of ankle surgery left > several yrs ago History of colonoscopy History of cardiac cath 1995> no stents Family History Father Lung cancer Denies family history of Ovarian cancer Prostate cancer Myocardial infarction Breast cancer Colorectal cancer Social History Smoking Status: Never smoker Second Hand Exposure: No; Do You Dip or Chew Tobacco: No; Hx Alcohol Use: Yes Alcohol type: wine Alcohol Intake Frequency: 2-3 x/Week Hx Substance Use: No Preferred Language: Japanese Communication Ability: Effective Visual Impairment: Limited Hearing Ability: Use of Hearing Aid Intern Architect Required: No Beliefs That Will Affect Care: None marital status: Current Living Situation: Spouse current occupational status: retired How many Children do You have: 2 Feels Safe at Home: Yes Childhood Exposure to Second-Hand Smoke: Yes Diet: regular caffeine: Yes Dental Care, Regularly: Yes Physical Activity Frequency: 3-4 Times per Week Seatbelt Use: always Sunscreen Use: Yes Do you think of yourself as: straight/heterosexual Assistive Devices: Glasses and Hearing Aid - Bilateral Review of Systems Review of Systems: All systems reviewed & are unremarkable except as noted in Subjective Physical Exam Physical Exam: General: No acute distress Skin: Warm and dry Head: Normocephalic, atraumatic Eyes: PERRL, conjunctivae clear, sclera non-icteric; wearing glasses ENT: External ear and ear canal without swelling; nose atraumatic; good dentition, tongue normal appearance, pharynx normal Neck: Supple, no LAD Cardio: RRR, no M/G/R, S1 and S2 normal Resp: No respiratory distress, Lungs CTA in all lobes bilaterally, no wheezes, rales, or rhonchi Abdomen: Soft, symmetric, nontender; No masses or hepatosplenomegaly; Bowel sounds normoactive MSK: Minimal discomfort to palpation L scapula, normal ROM; No deformities; pulses palpable and equal; no edema. Neuro: II- PERRL, no VF deficits III, IV, - EOMs intact, no deviation, no nystagmus V- Normal sensation in all locations VII- No asymmetry, no nasolabial fold flattening VIII- Normal hearing to speech IX, X- Normal palatal elevation, no ulnar deviation XI- 5/5 head turn + shoulder shrug bilaterally XII- Midline tongue protrusion Motor: 5/5 strength throughout BUE/BLE; no pronator drift Reflexes: WNL throughout, no clonus Sensory: Normal sensation throughout, no hemineglect, Romberg absent Coordination: Normal [id number], no tremor Gait: Unable to assess; no complaints Psych: Appears to be slightly confused with questioning; Appropriate mood; Where "[facility] [place], I don't know which one", when "January or February... 2027?", president "Lucille" , Sahra, present in room at time of visit. Results & Data Results & Data Vital Signs (Past 12 Hours) Vital Signs Temp Pulse Pulse Resp BP BP Pulse Ox 04/14/25 22:00 64 17 133/73 96 04/14/25 19:40 71 20 118/78 97 04/14/25 19:12 71 04/14/25 18:28 74 17 150/76 H 100 04/14/25 17:59 36.6 C 68 18 150/73 H 98 O2 Del Method 04/14/25 22:00 Room Air 04/14/25 19:40 Room Air 04/14/25 19:12 04/14/25 18:28 Room Air 04/14/25 17:59 Room Air Laboratory Results 04/14/25 04/14/25 04/14/25 Unknown 18:31 18:30 WBC 8.28 RBC 4.06 L Hgb 12.6 L Hct 36.3 L MCV 89.4 MCH 31.0 MCHC 34.7 RDW Std Deviation 41.7 RDW Coeff of Terese 12.7 Plt Count 167 MPV 8.9 L Immature Gran % (Auto) 0.2 Neut % (Auto) 79.6 Lymph % (Auto) 12.4 [place] % (Auto) 6.8 Eos % (Auto) 0.6 Baso % (Auto) 0.4 Neut # (Auto) 6.59 H Lymph # (Auto) 1.03 L [place] # (Auto) 0.56 Eos # (Auto) 0.05 Baso # (Auto) 0.03 Immature Gran # (Auto) 0.02 PT 19.3 H INR 1.9 H APTT 27 PTT Ratio 1.0 Sodium 133 L Potassium 4.0 Chloride 102 Carbon Dioxide 24 Anion Gap 7 BUN 23 Creatinine 1.17 Est Cr Clr Drug Dosing 48.5 eGFR 64.61 BUN/Creatinine Ratio 19.7 Glucose 98 POC Glucose 87 Calcium 8.7 Magnesium 1.7 Total Bilirubin 0.6 AST 20 ALT 20 Alkaline Phosphatase 37 Troponin I High Sens 6.7 Total Protein 6.3 Albumin 3.6 Globulin 2.7 Albumin/Globulin Ratio 1.3 Urine Color Yellow Urine Appearance Clear Urine pH 6.0 Ur Specific [place] 1.027 Urine Protein Negative Urine Glucose (UA) Negative Urine Ketones Trace H Urine Blood Negative Urine Nitrite Negative Urine Bilirubin Negative Urine Urobilinogen Negative Ur Leukocyte Esterase Negative Urine Comment Diagnostic Findings Chest CTA 04/14/25 18:10 CT pulmonary angiogram without and with IV contrast. History: Severe left shoulder pain. Confusion. COMPARISON: Plain film correlate November 11, 2020. TECHNIQUE: CT angiography of the chest was performed without IV contrast followed by IV contrast, including 3D post processing CTA image reconstruction. FINDINGS: Benefits Administrator film demonstrates no appreciated abnormality. Lung windows demonstrate mild dependent subsegmental atelectasis. Lungs are otherwise clear. Soft tissue windows demonstrate dense calcified atherosclerotic changes coronary vasculature. Mild calcified atheromatous changes thoracic aorta without aneurysmal dilatation or dissection. Heart size is within normal limits. Pulmonary vasculature limited secondary to bolus timing. No gross abnormality at these levels. No pericardial or pleural effusions. No atheromatous changes included systemic vasculature. No acute process of the included upper abdomen. Bone windows demonstrate degenerative changes of the thoracic spine. No acute osseous process. IMPRESSION: 1. Mild atheromatous changes thoracic and included abdominal aorta without aneurysmal dilatation or dissection. 2. Dense calcified atherosclerotic changes coronary vasculature. No additional findings to indicate source of patient's symptoms. Electronically signed by Prince Mccullough 04-14-2025 7:[address] 04/14/25 18:10 EXAM: Head CT without contrast and CT angiogram of the head and neck. History: Patient complains that head feels tight. Confusion. Comparison: MR brain correlate February 15, 2022. Study report not available at the time of dictation. Technique: HEAD CT: Using multidetector thin collimation helical acquisition technique, axial, coronal and sagittal CT images from the skull base to the vertex were obtained without intravenous contrast. HEAD and NECK CTA: During rapid bolus intravenous injection of nonionic contrast material, axial images were obtained using thin collimation multidetector helical technique from the base of the neck through the of vertex of the head. This CT angiogram data was reconstructed at thin intervals with mild overlap. 3D reconstructions were obtained. The axial source images, multiplanar reformations, 3D reconstructions in both maximum intensity projection display and volume rendered models were reviewed. Dose reduction techniques were achieved by using automatic exposure control and/or adjustment of mA and/or kV according to patient size and/or use of iterative reconstruction technique. FINDINGS: Benefits Administrator film demonstrates no abnormality. Brain windows demonstrate there is a 1.3 cm greatest dimension focal hyperdensity along the posterior aspect of the septum pellucidum just ventral to the splenium of the corpus callosum. Ventricles and sulci are within normal limits for patient's age. Small hypodensities left subinsular white matter. These are nonspecific. No appreciable mass effect. Basal cisterns are patent. No additional hemorrhage, mass or acute large territorial infarct. No midline shift. Lung windows demonstrate clear included pulmonary apices. Soft tissue windows demonstrate prominent soft tissue volume and attenuation left parietal scalp. No discrete laceration or faustino hematoma. Vascular windows demonstrate portions of the exam to be limited secondary to dental amalgam artifact. Bilateral V4 segments are patent. Bilateral posterior inferior cerebellar arteries are patent. Basilar artery is patent. Bilateral posterior cerebral arteries are patent. Calcified atherosclerotic changes cavernous sinus internal carotid arteries. No appreciated significant hemodynamically flow-limiting disease. Anterior cerebral arteries are patent. Middle cerebral arteries are patent. Posterior communicating arteries are not identified. Normal 3 branches of the thoracic aorta noted. Dominant left vertebral artery. Bilateral vertebral arteries are patent. Moderate calcified atheromatous plaque right carotid bulb. No flow-limiting disease. Additional mild calcified atheromatous plaque left carotid vasculature. Bilateral common carotid, internal carotid and external carotid arteries are otherwise patent. Although limited due to bolus timing major dural venous sinuses are patent. No discrete abnormal intracranial enhancement. Particular at the level of the above-described posterior septum pellucid him hyperdensity. Bone windows demonstrate multilevel degenerative changes of the spine. Moderate spinal canal and moderate to marked foraminal stenoses. Impression: 1. Indeterminant nodular hyperdensity along the dorsal septum pellucidum. Focal hemorrhage cannot be excluded. Meningioma not excluded. Consider 6-hour follow-up noncontrast head CT or MRI. 2. Small left subinsular white matter hypodensities. These are nonspecific. Small acute infarcts cannot entirely be excluded. No appreciable mass effect. MRI would be helpful for further characterization. 3. No large vessel occlusion. 4. Calcified atheromatous plaque systemic neck vasculature without significant flow-limiting disease. 5. Hypoplastic bilateral posterior communicating arteries. Intracranial systemic vasculature is otherwise patent. 6. Although limited due to bolus timing no discrete enhancement of the above-described posterior septum pellucidum nodular hyperdensity. 7. Focal area of soft tissue scalp swelling left parietal region. No radiopaque foreign body or discrete laceration. Correlate with prior trauma history. 8. Multilevel degenerative changes of the spine. Moderate spinal canal and moderate to marked foraminal stenoses. MRI would be helpful for further characterization. Critical results were discussed with Dr. Shaver on April 14, 2025 at 1755 hrs. Central standard time. The study was analyzed using artificial intelligence software for large vessel occlusion detection. Electronically signed by Prince Mccullough 04-14-2025 7:02 PM Head CTA 04/14/25 18:10 EXAM: Head CT without contrast and CT angiogram of the head and neck. History: Patient complains that head feels tight. Confusion. Comparison: MR brain correlate February 15, 2022. Study report not available at the time of dictation. Technique: HEAD CT: Using multidetector thin collimation helical acquisition technique, axial, coronal and sagittal CT images from the skull base to the vertex were obtained without intravenous contrast. HEAD and NECK CTA: During rapid bolus intravenous injection of nonionic contrast material, axial images were obtained using thin collimation multidetector helical technique from the base of the neck through the of vertex of the head. This CT angiogram data was reconstructed at thin intervals with mild overlap. 3D reconstructions were obtained. The axial source images, multiplanar reformations, 3D reconstructions in both maximum intensity projection display and volume rendered models were reviewed. Dose reduction techniques were achieved by using automatic exposure control and/or adjustment of mA and/or kV according to patient size and/or use of iterative reconstruction technique. FINDINGS: Benefits Administrator film demonstrates no abnormality. Brain windows demonstrate there is a 1.3 cm greatest dimension focal hyperdensity along the posterior aspect of the septum pellucidum just ventral to the splenium of the corpus callosum. Ventricles and sulci are within normal limits for patient's age. Small hypodensities left subinsular white matter. These are nonspecific. No appreciable mass effect. Basal cisterns are patent. No additional hemorrhage, mass or acute large territorial infarct. No midline shift. Lung windows demonstrate clear included pulmonary apices. Soft tissue windows demonstrate prominent soft tissue volume and attenuation left parietal scalp. No discrete laceration or faustino hematoma. Vascular windows demonstrate portions of the exam to be limited secondary to dental amalgam artifact. Bilateral V4 segments are patent. Bilateral posterior inferior cerebellar arteries are patent. Basilar artery is patent. Bilateral posterior cerebral arteries are patent. Calcified atherosclerotic changes cavernous sinus internal carotid arteries. No appreciated significant hemodynamically flow-limiting disease. Anterior cerebral arteries are patent. Middle cerebral arteries are patent. Posterior communicating arteries are not identified. Normal 3 branches of the thoracic aorta noted. Dominant left vertebral artery. Bilateral vertebral arteries are patent. Moderate calcified atheromatous plaque right carotid bulb. No flow-limiting disease. Additional mild calcified atheromatous plaque left carotid vasculature. Bilateral common carotid, internal carotid and external carotid arteries are otherwise patent. Although limited due to bolus timing major dural venous sinuses are patent. No discrete abnormal intracranial enhancement. Particular at the level of the above-described posterior septum pellucid him hyperdensity. Bone windows demonstrate multilevel degenerative changes of the spine. Moderate spinal canal and moderate to marked foraminal stenoses. Impression: 1. Indeterminant nodular hyperdensity along the dorsal septum pellucidum. Focal hemorrhage cannot be excluded. Meningioma not excluded. Consider 6-hour follow-up noncontrast head CT or MRI. 2. Small left subinsular white matter hypodensities. These are nonspecific. Small acute infarcts cannot entirely be excluded. No appreciable mass effect. MRI would be helpful for further characterization. 3. No large vessel occlusion. 4. Calcified atheromatous plaque systemic neck vasculature without significant flow-limiting disease. 5. Hypoplastic bilateral posterior communicating arteries. Intracranial systemic vasculature is otherwise patent. 6. Although limited due to bolus timing no discrete enhancement of the above-described posterior septum pellucidum nodular hyperdensity. 7. Focal area of soft tissue scalp swelling left parietal region. No radiopaque foreign body or discrete laceration. Correlate with prior trauma history. 8. Multilevel degenerative changes of the spine. Moderate spinal canal and moderate to marked foraminal stenoses. MRI would be helpful for further characterization. Critical results were discussed with Dr. Shaver on April 14, 2025 at 1755 hrs. Central standard time. The study was analyzed using artificial intelligence software for large vessel occlusion detection. Electronically signed by Prince Mccullough 04-14-2025 7:03 PM Neck CTA 04/14/25 18:10 EXAM: Head CT without contrast and CT angiogram of the head and neck. History: Patient complains that head feels tight. Confusion. Comparison: MR brain correlate February 15, 2022. Study report not available at the time of dictation. Technique: HEAD CT: Using multidetector thin collimation helical acquisition technique, axial, coronal and sagittal CT images from the skull base to the vertex were obtained without intravenous contrast. HEAD and NECK CTA: During rapid bolus intravenous injection of nonionic contrast material, axial images were obtained using thin collimation multidetector helical technique from the base of the neck through the of vertex of the head. This CT angiogram data was reconstructed at thin intervals with mild overlap. 3D reconstructions were obtained. The axial source images, multiplanar reformations, 3D reconstructions in both maximum intensity projection display and volume rendered models were reviewed. Dose reduction techniques were achieved by using automatic exposure control and/or adjustment of mA and/or kV according to patient size and/or use of iterative reconstruction technique. FINDINGS: Benefits Administrator film demonstrates no abnormality. Brain windows demonstrate there is a 1.3 cm greatest dimension focal hyperdensity along the posterior aspect of the septum pellucidum just ventral to the splenium of the corpus callosum. Ventricles and sulci are within normal limits for patient's age. Small hypodensities left subinsular white matter. These are nonspecific. No appreciable mass effect. Basal cisterns are patent. No additional hemorrhage, mass or acute large territorial infarct. No midline shift. Lung windows demonstrate clear included pulmonary apices. Soft tissue windows demonstrate prominent soft tissue volume and attenuation left parietal scalp. No discrete laceration or faustino hematoma. Vascular windows demonstrate portions of the exam to be limited secondary to dental amalgam artifact. Bilateral V4 segments are patent. Bilateral posterior inferior cerebellar arteries are patent. Basilar artery is patent. Bilateral posterior cerebral arteries are patent. Calcified atherosclerotic changes cavernous sinus internal carotid arteries. No appreciated significant hemodynamically flow-limiting disease. Anterior cerebral arteries are patent. Middle cerebral arteries are patent. Posterior communicating arteries are not identified. Normal 3 branches of the thoracic aorta noted. Dominant left vertebral artery. Bilateral vertebral arteries are patent. Moderate calcified atheromatous plaque right carotid bulb. No flow-limiting disease. Additional mild calcified atheromatous plaque left carotid vasculature. Bilateral common carotid, internal carotid and external carotid arteries are otherwise patent. Although limited due to bolus timing major dural venous sinuses are patent. No discrete abnormal intracranial enhancement. Particular at the level of the above-described posterior septum pellucid him hyperdensity. Bone windows demonstrate multilevel degenerative changes of the spine. Moderate spinal canal and moderate to marked foraminal stenoses. Impression: 1. Indeterminant nodular hyperdensity along the dorsal septum pellucidum. Focal hemorrhage cannot be excluded. Meningioma not excluded. Consider 6-hour follow-up noncontrast head CT or MRI. 2. Small left subinsular white matter hypodensities. These are nonspecific. Small acute infarcts cannot entirely be excluded. No appreciable mass effect. MRI would be helpful for further characterization. 3. No large vessel occlusion. 4. Calcified atheromatous plaque systemic neck vasculature without significant flow-limiting disease. 5. Hypoplastic bilateral posterior communicating arteries. Intracranial systemic vasculature is otherwise patent. 6. Although limited due to bolus timing no discrete enhancement of the above-described posterior septum pellucidum nodular hyperdensity. 7. Focal area of soft tissue scalp swelling left parietal region. No radiopaque foreign body or discrete laceration. Correlate with prior trauma history. 8. Multilevel degenerative changes of the spine. Moderate spinal canal and moderate to marked foraminal stenoses. MRI would be helpful for further characterization. Critical results were discussed with Dr. Shaver on April 14, 2025 at 1755 hrs. Central standard time. The study was analyzed using artificial intelligence software for large vessel occlusion detection. Electronically signed by Prince Mccullough 04-14-2025 7:03 PM Brain MRI 04/14/25 20:06 Exam(s): MRI HEAD W/WO Contrast IV Amt: 6.3cc gadavist EXAM: MR Head Without and With Intravenous Contrast CLINICAL HISTORY: Reason for exam: stroke like sx/confusion, eval hyperdensity. OTHER: Other Notes: 6.3CC GADAVIST INJ. LEFT IV AT 4 HRS. BY [facility] R/O CVA CONFUSION PROP SCANS FOR MOTION TECHNIQUE: Magnetic resonance images of the head/brain without and with intravenous contrast in multiple planes. CONTRAST: Patient received 6.3cc gadavist of IV contrast COMPARISON: Prior head CT from April 14, 2025. FINDINGS: Brain: There is a partially calcified soft tissue lesion in the posterior septum pellucidum with minimal enhancement. No hemorrhage. No acute infarct. The flow voids at the base the brain are intact. No evidence of abnormal enhancement. The dural venous sinuses are patent. Ventricles: Unremarkable advanced ventriculomegaly. Bones/joints: Unremarkable. No acute fracture. Sinuses: Chronic ethmoid sinusitis. No acute sinusitis. Mastoid air cells: Unremarkable as visualized. No mastoid effusion. Orbits: Unremarkable as visualized. IMPRESSION: No evidence of acute intracranial pathology. Small partially calcified and minimally enhancing lesion in the posterior septum pellucidum. The differential diagnosis includes atypical meningioma or central neurocytoma. Electronically signed by: Nola Johnson MD 04/14/25 22:36 PM Medications Administered 1L NSS ECG Additional Comments: NSR 71 bpm, MN 150, QRS 86, QT/QTc 402/436, PRT 67/20/57 Supervising Physician Co-Signing Physician Notes Patient seen and examined, chart reviewed, case discussed with KERRI Peng and I agree with the assessment and plan as above. Confusion, etiology unclear. Patient does report history of head trauma several days ago but is unable to provid clear details of the event Nonfocal. No infectious symptoms Possible seizure? On exam patient is confused, non-focal. Labs and images reviewed -Will check EEG -Neuro consult appreciated -B12 supplementation -Vitamin K level sent from ER. Possible nutritional deficiency given elevated INR, consider supplementation -Remainder as above PG Care Time/CCT Total # of Minutes Spent Total Time Spent with Patient: Total time spent is greater than 50% in coordination of care (as documented) at patient's floor/unit and/or counseling patient: Coding Level of Care Code 79794 INT INP/OBS CARE 3/75MIN Diagnoses Altered mental status, unspecified R41.82 Anemia D64.9 Vitamin B12 deficiency E53.8 Hyponatremia E87.1
[2025-04-14 23:34] LABS: INR 1.7 (0.9-1.1); Prothrombin Time 17.9 Seconds (9.0-12.0)
[2025-04-15] MEDS ORDERED: POLYETHYLENE (MIRALAX) 17 GM PACK PO PRN (01:28)
[2025-04-15] MEDS ORDERED: ONDANSETRON INJ 2 MG/ML 2 ML VIAL IV PRN (01:28)
[2025-04-15] MEDS: ATORVASTATIN 40 MG TAB PO SCH (08:17)
[2025-04-15] MEDS: ASPIRIN 81 MG ECTAB PO SCH (08:17)
[2025-04-15] MEDS: CYANOCOBALAMIN 1000 MCG/ML VIAL IM SCH (08:19)
[2025-04-15 08:22] LABS: Hematocrit (blood only) 39.0 % (42.0-52.0); Hemoglobin 13.4 g/dl (14.0-18.0); Mean Corpuscular Hemoglobin 30.7 pg (25.0-34.0); Mean Corpuscular Volume 89.2 fL (80.0-100.0); Platelet Count 180 K/uL (130-400); RDW Standard Deviation 42.1 fL (36.4-46.3); Red Blood Count 4.37 M/uL (4.70-6.10); White Blood Count 5.59 K/ul (4.8-10.8)
[2025-04-15 08:46] LABS: Iron 73.0 mcg/dl (35-175); Total Iron Binding Cap Calc 333.0 mcg/dl (250-450); Transferrin 238.0 mg/dl (200-360); Transferrin (FE) Percent Satur 22.0 % (20-50)
[2025-04-15 08:52] LABS: INR 1.7 (0.9-1.1); Prothrombin Time 17.0 Seconds (9.0-12.0)
[2025-04-15 09:05] LABS: Anion Gap 10.0 (3-11); Blood Urea Nitrogen 18.0 mg/dl (6-23); Calcium 9.0 mg/dl (8.6-10.3); Carbon Dioxide 24.0 mmol/L (21-32); Chloride 107.0 mmol/L (98-107); Creatinine Clr Calc Pharmacy 50.2 ml/min; Glucose 88.0 mg/dl (70-99(Fasting)); Potassium 4.2 mmol/L (3.5-5.1); Sodium 141.0 mmol/L (136-145)
[2025-04-15 09:06] LABS: Ferritin 97.4 ng/ml (8-388)
[2025-04-15 09:12] LABS: Folate (Folic Acid),Ser orPlas > 22.30 ng/ml (>5.38)
[2025-04-15 09:13] LABS: Vitamin B12 1205 pg/ml (180-914)
--- NOTE | 2025-04-15 11:57 | Hospitalist Progress Note ---
Date of Service April 15, 2025 Assessment & Plan (1) Altered mental status, unspecified: Plan: Probably due to concussion suffered when he fell and struck his head several days prior to admission. No evidence of CVA. EEG is pending to make sure he has no seizure activity and his current state did not represent a post ictal phenomenon. (2) Anemia: Plan: Mild on admission. No evidence of GI bleeding. Outpatient follow-up (3) Vitamin B12 deficiency: Plan: Stable. Continue current supplementation (4) Hyponatremia: Plan: Mild on admission. Now normal. No further evaluation needed Plan Hopeful discharge to home tomorrow, April 16 Admission and Anticipated Discharge Date Admission Date: April 14, 2025 Subjective Feeling better and he appears to have returned to his baseline. is at the bedside. Sodium now normal at 141. Brain MRI reveals incidental finding of a small lesion in the posterior septum pellucid him area that appears to be benign and of no clinical consequence. EEG is pending. Overall he is doing much better. He may have simply suffered a concussion with memory loss when he fell and struck his head several days ago. Hopefully he can go home tomorrow, April 16 Review of Systems 2 Review of Systems: Constitutionalno fever or chills ENTno blurred vision, no double vision, no epistaxis, no sore throat Respiratoryno cough, no wheezing, no shortness of breath Cardiacno palpitations, no chest pain, no syncope Alisa nausea, vomiting, diarrhea, melena, hematochezia GUno urinary retention, no urinary incontinence, no dysuria, no hematuria Musculoskeletalno joint pain, no muscle tenderness Skinno bruising, no rashes, no pruritus Neurono isolated weakness, no paresthesia, no weakness Psychno depression, no anxiety Physical Exam 2 Physical Exam: General-alert and oriented x3, no fever, no chills HEENT-head atraumatic and normocephalic, pupils equal and reactive to light, extraocular muscles intact Neck-no lymphadenopathy or thyromegaly, trachea midline Chest-clear to auscultation. No rales, wheezing or rhonchi Cardiac-regular rate and rhythm, normal S1 and S2 Abdomen-normal bowel sounds, no hepatosplenomegaly Extremities-no cyanosis, clubbing, or edema Neuro-cranial nerves II through XII intact, motor and sensory function within normal limits, strength symmetrical, no focal deficits Psych-normal affect, normal mood Results & Data Results & Data Vital Signs (Past 12 Hours) Vital Signs Temp Pulse Pulse Pulse Resp BP Pulse Ox 04/15/25 07:12 36.6 C 73 18 135/67 97 04/15/25 03:54 36.4 C L 59 L 18 126/68 96 04/15/25 01:28 36.4 C L 70 18 147/83 H 100 04/15/25 01:28 04/15/25 01:13 71 04/15/25 01:00 36.4 C L 70 18 147/83 H 100 04/15/25 00:55 04/15/25 00:00 58 L 14 142/70 H 96 Pulse Ox O2 Del Method O2 Del Method 04/15/25 07:12 Room Air 04/15/25 03:54 Room Air 04/15/25 01:28 Room Air 04/15/25 01:28 100 Room Air 04/15/25 01:13 04/15/25 01:00 Room Air 04/15/25 00:55 Room Air 04/15/25 00:00 Room Air Laboratory Results 04/15/25 07:23 04/15/25 07:23 PG Care Time/CCT Total # of Minutes Spent Total Time Spent with Patient: Total time spent is greater than 50% in coordination of care (as documented) at patient's floor/unit and/or counseling patient: Coding Level of Care Code 58382 SUB INP/OBS CARE 3/50MIN Diagnoses Altered mental status, unspecified R41.82 Anemia D64.9 Vitamin B12 deficiency E53.8 Hyponatremia E87.1
--- NOTE | 2025-04-15 12:26 | Neurology Consultation ---
Date of Consultation April 15, 2025 Assessment & Plan (1) Acute confusional state: (2) Concussion: (3) Brain lesion: Plan 75-year-old male with medical history significant for neck pain, degenerative disc disease, mild cognitive impairment, presented the emergency room with an episode of acute confusion which is now resolved. Altered mental status most likely secondary to head injury due to fall since patient sustained a fall 4 days prior to the admission which was associated with dizziness, headaches and mild confusion. No focal deficits on exam on arrival to the emergency room. Altered mental status has now resolved and patient is almost back to the baseline. MRI of the brain is negative for acute intracranial pathology. MRI of the brain showed incidental brain lesion which most likely meningioma. This will be followed up with neurosurgery as outpatient. Consider MRI of the brain with contrast to further evaluate the lesion Head CT did not show any acute intracranial pathology except for the lesion as described in the MRI of the brain CT angiogram of the head and neck did not show hemodynamically significant stenosis EKG showed normal sinus rhythm Strict control of blood pressure and blood glucose Continue home medications PT/OT EEG to evaluate for episode of confusion Neurochecks every 4 hours Continue medical management per primary team Plan discussed in detail with the patient, son at bedside, and the nursing staff Plan also communicated with the primary attending Dr. Marino via [place]nel[place] text Time Spent (min) 60 minutes Comment Total time includes patient contact, chart review, counseling, note preparation *Disclaimer: This note was generated using [employer] dictation software. Any typographical errors are unintentional and attributed to errors in voice recognition. If there are any areas of the note that do not make sense, please contact me for clarification. Telehealth Consultation Telehealth Information Telehealth Information: I performed this visit using a real-time telehealth connection between my location and the patients originating location ([facility]). After connecting through interactive tele-video, patient was identified by name and date of and/or wristband check.Patient (or authorized healthcare sales representative graphic art) was informed that this was a telemedicine visit and it was being conducted confidentially over secure lines. My office door was closed and no one else was present in the room with me.Patient (or authorized healthcare sales representative graphic art) provided consent to proceed with the visit, expressed an understanding of privacy and security of the telemedicine visit, and gave permission to have a hospital sales representative graphic art in the room in order to assist with the visit and to conduct portions of the visit, as needed. I informed the patient (or authorized healthcare sales representative graphic art) that I reviewed their record and presented the opportunity for them to ask any questions regarding the visit today. The patient agreed to participate. History of Present Illness Reason for Consultation: Altered mental status Requesting Physician: Prosper Lawler MD Attending Physician: Prosper Lawler MD History of Present Illness 75-year-old male with medical history significant for sensorineural hearing loss of both ears, neck pain, degenerative disc disease, neurogenic claudication due to lumbar spinal stenosis, and eczema presented to the emergency room on 04/14/2025 because of acute confusion. According to the patient, he had sustained a fall 4 days prior to the admission on 04/14/2025. He has no recollection how he fell but he hit pretty hard on the floor and since then he has dizziness associated with headache with some confusion. However, around 2 PM yesterday 04/14/2025, he became extremely disoriented which was noted by the family members and he was brought to the emergency room for further evaluation. The family members did not notice any facial droop, focal weakness, or problems with speech at that time. In the emergency room, he was found to be confused with no focal deficits. Head CT was done which showed small hyper dense abnorma lity in midline posterior septum pellucidum region which could represent acute ICH versus hyperdense lesion meningioma. CT angiogram of the head and neck did not show hemodynamically significant stenosis. Follow-up MRI of the brain with contrast showed hyperdense abnormality with differential diagnosis most likely meningioma. The patient is almost back to the baseline at the time of rounds and is alert and x 3 with no focal deficits. He denies any nausea, vomiting, chest pain, abdominal pain, focal weakness, focal paresthesia, or problems with speech or swallowing. He has no prior history of strokes or seizures. Allergies Allergy/AdvReac Type Severity Reaction Status Date / Time gabapentin Allergy Intermediate hives Verified 04/14/25 23:40 Sulfa (Sulfonamide Allergy Unknown Unknown Verified 04/14/25 23:40 Antibiotics) Home Medications Medication Instructions Recorded Confirmed Type aspirin 81 mg tablet,delayed 81 mg PO DAILY 05/23/21 04/14/25 History release (Adult Aspirin Regimen) vitamin B complex-folic acid ER tab PO 02/04/23 11/03/24 History 400 mcg tablet,extended release mecobalamin (vitamin B12) 1,000 500 mcg PO DAILY 02/05/23 04/14/25 History mcg chewable tablet tamsulosin 0.4 mg capsule 0.4 mg PO DAILY #90 caps 06/30/24 11/03/24 Rx lisinopril 5 mg tablet 5 mg PO DAILY #90 tabs 09/25/24 04/14/25 Rx atorvastatin 80 mg tablet 80 mg PO DAILY #90 tabs 10/12/24 04/14/25 Rx metoprolol succinate 50 mg 50 mg PO DAILY #90 tabs 12/31/24 Rx tablet,extended release 24 hr Patient History Medical History Sensorineural hearing loss (SNHL) of both ears Sensorineural hearing loss (SNHL) of left ear with restricted hearing of right ear Neck pain Degenerative disc disease 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 Surgical History H/O colonoscopy 10/2016 repeat 10 yrs History of ankle surgery left > several yrs ago History of colonoscopy History of cardiac cath 1995> no stents Family History Father Lung cancer Denies family history of Ovarian cancer Prostate cancer Myocardial infarction Breast cancer Colorectal cancer Social History Smoking Status: Never smoker Second Hand Exposure: No; Do You Dip or Chew Tobacco: No; Hx Alcohol Use: No Hx Substance Use: No Preferred Language: Mauritanian Communication Ability: Effective Visual Impairment: Limited Hearing Ability: Use of Hearing Aid Supervisor Lamp Shades Required: No Beliefs That Will Affect Care: None marital status: Current Living Situation: Spouse current occupational status: retired How many Children do You have: 2 Feels Safe at Home: Yes Safety Concerns: Feels Safe At This Time Childhood Exposure to Second-Hand Smoke: Yes Diet: regular caffeine: Yes Dental Care, Regularly: Yes Physical Activity Frequency: 3-4 Times per Week Seatbelt Use: always Sunscreen Use: Yes Do you think of yourself as: straight/heterosexual Assistive Devices: None Review of Systems Constitutional symptoms, eyes, ears, nose, throat, cardiovascular, respiratory, gastrointestinal, genitourinary, musculoskeletal, endocrine, hematologic, and psychiatric review of systems are negative about the chief complaint, except as detailed in the present illness. Physical Exam Neuro Exam Mentation and Language Alert and oriented to person, place, time and situation. There is no apparent deficit of comprehensionfluent speech without word-finding difficulty or dysarthria. The affect appears appropriate. Cranial Nerves CN 11-X11 intact. Except. Cranial nerve VIIIhearing deficit bilaterally Motor There is appropriate bulk throughout. Tone is normal. There is no resting tremor or other extraneous movements. Strength is graded 5/5 throughout the upper and lower extremities bilaterally. Sensation Intact to light touch, vibration, proprioception, temperature, pinprick bilaterally Coordination There is no dysmetria with finger nose finger Gait and Station Deferred due to patient safety reasons. NIHSS Level of consciousness: Alert = 0 Current month and age: Answers both correctly = 0 Open and close eyes/cartoon artist release hand: Obeys both correctly = 0 Best gaze: Normal = . 0 Visual field testing: Partial hemianopia = 0 Facial paresis: Normal symmetric movement = 0. Motor function left arm: Normal = . 0 Motor function right arm: Normal = 0 Motor function l normal = 0 Motor function right leg: Normal = 0 Limb ataxia = 0 Best language: No aphasia. = . 0 Dysarthria: = 0 Extinction and inattention: Normal = 0 Total score 0 Results & Data Vital Signs (Past 12 Hours) Vital Signs Temp Pulse Pulse Resp BP Pulse Ox Pulse Ox 04/15/25 11:07 36.7 C 73 16 122/69 97 04/15/25 09:00 54 L 04/15/25 07:12 36.6 C 73 18 135/67 97 04/15/25 03:54 36.4 C L 59 L 18 126/68 96 04/15/25 01:28 36.4 C L 70 18 147/83 H 100 04/15/25 01:28 100 04/15/25 01:13 71 04/15/25 01:00 36.4 C L 70 18 147/83 H 100 04/15/25 00:55 O2 Del Method O2 Del Method 04/15/25 11:07 Room Air 04/15/25 09:00 04/15/25 07:12 Room Air 04/15/25 03:54 Room Air 04/15/25 01:28 Room Air 04/15/25 01:28 Room Air 04/15/25 01:13 04/15/25 01:00 Room Air 04/15/25 00:55 Room Air Laboratory Results 04/14/25 04/14/25 04/14/25 Unknown 18:31 18:30 WBC 8.28 RBC 4.06 L Hgb 12.6 L Hct 36.3 L MCV 89.4 MCH 31.0 MCHC 34.7 RDW Std Deviation 41.7 RDW Coeff of Terese 12.7 Plt Count 167 MPV 8.9 L Immature Gran % (Auto) 0.2 Neut % (Auto) 79.6 Lymph % (Auto) 12.4 [place] % (Auto) 6.8 Eos % (Auto) 0.6 Baso % (Auto) 0.4 Neut # (Auto) 6.59 H Lymph # (Auto) 1.03 L [place] # (Auto) 0.56 Eos # (Auto) 0.05 Baso # (Auto) 0.03 Immature Gran # (Auto) 0.02 PT 19.3 H INR 1.9 H APTT 27 PTT Ratio 1.0 Sodium 133 L Potassium 4.0 Chloride 102 Carbon Dioxide 24 Anion Gap 7 BUN 23 Creatinine 1.17 Est Cr Clr Drug Dosing 48.5 eGFR 64.61 BUN/Creatinine Ratio 19.7 Glucose 98 POC Glucose 87 Calcium 8.7 Magnesium 1.7 Total Bilirubin 0.6 AST 20 ALT 20 Alkaline Phosphatase 37 Troponin I High Sens 6.7 Total Protein 6.3 Albumin 3.6 Globulin 2.7 Albumin/Globulin Ratio 1.3 Urine Color Yellow Urine Appearance Clear Urine pH 6.0 Ur Specific [place] 1.027 Urine Protein Negative Urine Glucose (UA) Negative Urine Ketones Trace H Urine Blood Negative Urine Nitrite Negative Urine Bilirubin Negative Urine Urobilinogen Negative Ur Leukocyte Esterase Negative Urine Comment Diagnostic Findings Chest CTA 04/14/25 18:10 CT pulmonary angiogram without and with IV contrast. History: Severe left shoulder pain. Confusion. COMPARISON: Plain film correlate November 11, 2020. TECHNIQUE: CT angiography of the chest was performed without IV contrast followed by IV contrast, including 3D post processing CTA image reconstruction. FINDINGS: Telex Operator film demonstrates no appreciated abnormality. Lung windows demonstrate mild dependent subsegmental atelectasis. Lungs are otherwise clear. Soft tissue windows demonstrate dense calcified atherosclerotic changes coronary vasculature. Mild calcified atheromatous changes thoracic aorta without aneurysmal dilatation or dissection. Heart size is within normal limits. Pulmonary vasculature limited secondary to bolus timing. No gross abnormality at these levels. No pericardial or pleural effusions. No atheromatous changes included systemic vasculature. No acute process of the included upper abdomen. Bone windows demonstrate degenerative changes of the thoracic spine. No acute osseous process. IMPRESSION: 1. Mild atheromatous changes thoracic and included abdominal aorta without aneurysmal dilatation or dissection. 2. Dense calcified atherosclerotic changes coronary vasculature. No additional findings to indicate source of patient's symptoms. Electronically signed by Prince Mccullough 04-14-2025 7:[address] 04/14/25 18:10 EXAM: Head CT without contrast and CT angiogram of the head and neck. History: Patient complains that head feels tight. Confusion. Comparison: MR brain correlate February 15, 2022. Study report not available at the time of dictation. Technique: HEAD CT: Using multidetector thin collimation helical acquisition technique, axial, coronal and sagittal CT images from the skull base to the vertex were obtained without intravenous contrast. HEAD and NECK CTA: During rapid bolus intravenous injection of nonionic contrast material, axial images were obtained using thin collimation multidetector helical technique from the base of the neck through the of vertex of the head. This CT angiogram data was reconstructed at thin intervals with mild overlap. 3D reconstructions were obtained. The axial source images, multiplanar reformations, 3D reconstructions in both maximum intensity projection display and volume rendered models were reviewed. Dose reduction techniques were achieved by using automatic exposure control and/or adjustment of mA and/or kV according to patient size and/or use of iterative reconstruction technique. FINDINGS: Telex Operator film demonstrates no abnormality. Brain windows demonstrate there is a 1.3 cm greatest dimension focal hyperdensity along the posterior aspect of the septum pellucidum just ventral to the splenium of the corpus callosum. Ventricles and sulci are within normal limits for patient's age. Small hypodensities left subinsular white matter. These are nonspecific. No appreciable mass effect. Basal cisterns are patent. No additional hemorrhage, mass or acute large territorial infarct. No midline shift. Lung windows demonstrate clear included pulmonary apices. Soft tissue windows demonstrate prominent soft tissue volume and attenuation left parietal scalp. No discrete laceration or faustino hematoma. Vascular windows demonstrate portions of the exam to be limited secondary to dental amalgam artifact. Bilateral V4 segments are patent. Bilateral posterior inferior cerebellar arteries are patent. Basilar artery is patent. Bilateral posterior cerebral arteries are patent. Calcified atherosclerotic changes cavernous sinus internal carotid arteries. No appreciated significant hemodynamically flow-limiting disease. Anterior cerebral arteries are patent. Middle cerebral arteries are patent. Posterior communicating arteries are not identified. Normal 3 branches of the thoracic aorta noted. Dominant left vertebral artery. Bilateral vertebral arteries are patent. Moderate calcified atheromatous plaque right carotid bulb. No flow-limiting disease. Additional mild calcified atheromatous plaque left carotid vasculature. Bilateral common carotid, internal carotid and external carotid arteries are otherwise patent. Although limited due to bolus timing major dural venous sinuses are patent. No discrete abnormal intracranial enhancement. Particular at the level of the above-described posterior septum pellucid him hyperdensity. Bone windows demonstrate multilevel degenerative changes of the spine. Moderate spinal canal and moderate to marked foraminal stenoses. Impression: 1. Indeterminant nodular hyperdensity along the dorsal septum pellucidum. Focal hemorrhage cannot be excluded. Meningioma not excluded. Consider 6-hour follow-up noncontrast head CT or MRI. 2. Small left subinsular white matter hypodensities. These are nonspecific. Small acute infarcts cannot entirely be excluded. No appreciable mass effect. MRI would be helpful for further characterization. 3. No large vessel occlusion. 4. Calcified atheromatous plaque systemic neck vasculature without significant flow-limiting disease. 5. Hypoplastic bilateral posterior communicating arteries. Intracranial systemic vasculature is otherwise patent. 6. Although limited due to bolus timing no discrete enhancement of the above-described posterior septum pellucidum nodular hyperdensity. 7. Focal area of soft tissue scalp swelling left parietal region. No radiopaque foreign body or discrete laceration. Correlate with prior trauma history. 8. Multilevel degenerative changes of the spine. Moderate spinal canal and moderate to marked foraminal stenoses. MRI would be helpful for further characterization. Critical results were discussed with Dr. Shaver on April 14, 2025 at 1755 hrs. Central standard time. The study was analyzed using artificial intelligence software for large vessel occlusion detection. Electronically signed by Prince Mccullough 04-14-2025 7:02 PM Head CTA 04/14/25 18:10 EXAM: Head CT without contrast and CT angiogram of the head and neck. History: Patient complains that head feels tight. Confusion. Comparison: MR brain correlate February 15, 2022. Study report not available at the time of dictation. Technique: HEAD CT: Using multidetector thin collimation helical acquisition technique, axial, coronal and sagittal CT images from the skull base to the vertex were obtained without intravenous contrast. HEAD and NECK CTA: During rapid bolus intravenous injection of nonionic contrast material, axial images were obtained using thin collimation multidetector helical technique from the base of the neck through the of vertex of the head. This CT angiogram data was reconstructed at thin intervals with mild overlap. 3D reconstructions were obtained. The axial source images, multiplanar reformations, 3D reconstructions in both maximum intensity projection display and volume rendered models were reviewed. Dose reduction techniques were achieved by using automatic exposure control and/or adjustment of mA and/or kV according to patient size and/or use of iterative reconstruction technique. FINDINGS: Telex Operator film demonstrates no abnormality. Brain windows demonstrate there is a 1.3 cm greatest dimension focal hyperdensity along the posterior aspect of the septum pellucidum just ventral to the splenium of the corpus callosum. Ventricles and sulci are within normal limits for patient's age. Small hypodensities left subinsular white matter. These are nonspecific. No appreciable mass effect. Basal cisterns are patent. No additional hemorrhage, mass or acute large territorial infarct. No midline shift. Lung windows demonstrate clear included pulmonary apices. Soft tissue windows demonstrate prominent soft tissue volume and attenuation left parietal scalp. No discrete laceration or faustino hematoma. Vascular windows demonstrate portions of the exam to be limited secondary to dental amalgam artifact. Bilateral V4 segments are patent. Bilateral posterior inferior cerebellar arteries are patent. Basilar artery is patent. Bilateral posterior cerebral arteries are patent. Calcified atherosclerotic changes cavernous sinus internal carotid arteries. No appreciated significant hemodynamically flow-limiting disease. Anterior cerebral arteries are patent. Middle cerebral arteries are patent. Posterior communicating arteries are not identified. Normal 3 branches of the thoracic aorta noted. Dominant left vertebral artery. Bilateral vertebral arteries are patent. Moderate calcified atheromatous plaque right carotid bulb. No flow-limiting disease. Additional mild calcified atheromatous plaque left carotid vasculature. Bilateral common carotid, internal carotid and external carotid arteries are otherwise patent. Although limited due to bolus timing major dural venous sinuses are patent. No discrete abnormal intracranial enhancement. Particular at the level of the above-described posterior septum pellucid him hyperdensity. Bone windows demonstrate multilevel degenerative changes of the spine. Moderate spinal canal and moderate to marked foraminal stenoses. Impression: 1. Indeterminant nodular hyperdensity along the dorsal septum pellucidum. Focal hemorrhage cannot be excluded. Meningioma not excluded. Consider 6-hour follow-up noncontrast head CT or MRI. 2. Small left subinsular white matter hypodensities. These are nonspecific. Small acute infarcts cannot entirely be excluded. No appreciable mass effect. MRI would be helpful for further characterization. 3. No large vessel occlusion. 4. Calcified atheromatous plaque systemic neck vasculature without significant flow-limiting disease. 5. Hypoplastic bilateral posterior communicating arteries. Intracranial systemic vasculature is otherwise patent. 6. Although limited due to bolus timing no discrete enhancement of the above-described posterior septum pellucidum nodular hyperdensity. 7. Focal area of soft tissue scalp swelling left parietal region. No radiopaque foreign body or discrete laceration. Correlate with prior trauma history. 8. Multilevel degenerative changes of the spine. Moderate spinal canal and moderate to marked foraminal stenoses. MRI would be helpful for further characterization. Critical results were discussed with Dr. Shaver on April 14, 2025 at 1755 hrs. Central standard time. The study was analyzed using artificial intelligence software for large vessel occlusion detection. Electronically signed by Prince Mccullough 04-14-2025 7:03 PM Neck CTA 04/14/25 18:10 EXAM: Head CT without contrast and CT angiogram of the head and neck. History: Patient complains that head feels tight. Confusion. Comparison: MR brain correlate February 15, 2022. Study report not available at the time of dictation. Technique: HEAD CT: Using multidetector thin collimation helical acquisition technique, axial, coronal and sagittal CT images from the skull base to the vertex were obtained without intravenous contrast. HEAD and NECK CTA: During rapid bolus intravenous injection of nonionic contrast material, axial images were obtained using thin collimation multidetector helical technique from the base of the neck through the of vertex of the head. This CT angiogram data was reconstructed at thin intervals with mild overlap. 3D reconstructions were obtained. The axial source images, multiplanar reformations, 3D reconstructions in both maximum intensity projection display and volume rendered models were reviewed. Dose reduction techniques were achieved by using automatic exposure control and/or adjustment of mA and/or kV according to patient size and/or use of iterative reconstruction technique. FINDINGS: Telex Operator film demonstrates no abnormality. Brain windows demonstrate there is a 1.3 cm greatest dimension focal hyperdensity along the posterior aspect of the septum pellucidum just ventral to the splenium of the corpus callosum. Ventricles and sulci are within normal limits for patient's age. Small hypodensities left subinsular white matter. These are nonspecific. No appreciable mass effect. Basal cisterns are patent. No additional hemorrhage, mass or acute large territorial infarct. No midline shift. Lung windows demonstrate clear included pulmonary apices. Soft tissue windows demonstrate prominent soft tissue volume and attenuation left parietal scalp. No discrete laceration or faustino hematoma. Vascular windows demonstrate portions of the exam to be limited secondary to dental amalgam artifact. Bilateral V4 segments are patent. Bilateral posterior inferior cerebellar arteries are patent. Basilar artery is patent. Bilateral posterior cerebral arteries are patent. Calcified atherosclerotic changes cavernous sinus internal carotid arteries. No appreciated significant hemodynamically flow-limiting disease. Anterior cerebral arteries are patent. Middle cerebral arteries are patent. Posterior communicating arteries are not identified. Normal 3 branches of the thoracic aorta noted. Dominant left vertebral artery. Bilateral vertebral arteries are patent. Moderate calcified atheromatous plaque right carotid bulb. No flow-limiting disease. Additional mild calcified atheromatous plaque left carotid vasculature. Bilateral common carotid, internal carotid and external carotid arteries are otherwise patent. Although limited due to bolus timing major dural venous sinuses are patent. No discrete abnormal intracranial enhancement. Particular at the level of the above-described posterior septum pellucid him hyperdensity. Bone windows demonstrate multilevel degenerative changes of the spine. Moderate spinal canal and moderate to marked foraminal stenoses. Impression: 1. Indeterminant nodular hyperdensity along the dorsal septum pellucidum. Focal hemorrhage cannot be excluded. Meningioma not excluded. Consider 6-hour follow-up noncontrast head CT or MRI. 2. Small left subinsular white matter hypodensities. These are nonspecific. Small acute infarcts cannot entirely be excluded. No appreciable mass effect. MRI would be helpful for further characterization. 3. No large vessel occlusion. 4. Calcified atheromatous plaque systemic neck vasculature without significant flow-limiting disease. 5. Hypoplastic bilateral posterior communicating arteries. Intracranial systemic vasculature is otherwise patent. 6. Although limited due to bolus timing no discrete enhancement of the above-described posterior septum pellucidum nodular hyperdensity. 7. Focal area of soft tissue scalp swelling left parietal region. No radiopaque foreign body or discrete laceration. Correlate with prior trauma history. 8. Multilevel degenerative changes of the spine. Moderate spinal canal and moderate to marked foraminal stenoses. MRI would be helpful for further characterization. Critical results were discussed with Dr. Shaver on April 14, 2025 at 1755 hrs. Central standard time. The study was analyzed using artificial intelligence software for large vessel occlusion detection. Electronically signed by Prince Mccullough 04-14-2025 7:03 PM Brain MRI 04/14/25 20:06 Exam(s): MRI HEAD W/WO Contrast IV Amt: 6.3cc gadavist EXAM: MR Head Without and With Intravenous Contrast CLINICAL HISTORY: Reason for exam: stroke like sx/confusion, eval hyperdensity. OTHER: Other Notes: 6.3CC GADAVIST INJ. LEFT IV AT 2054 HRS. BY CMP R/O CVA CONFUSION PROP SCANS FOR MOTION TECHNIQUE: Magnetic resonance images of the head/brain without and with intravenous contrast in multiple planes. CONTRAST: Patient received 6.3cc gadavist of IV contrast COMPARISON: Prior head CT from April 14, 2025. FINDINGS: Brain: There is a partially calcified soft tissue lesion in the posterior septum pellucidum with minimal enhancement. No hemorrhage. No acute infarct. The flow voids at the base the brain are intact. No evidence of abnormal enhancement. The dural venous sinuses are patent. Ventricles: Unremarkable advanced ventriculomegaly. Bones/joints: Unremarkable. No acute fracture. Sinuses: Chronic ethmoid sinusitis. No acute sinusitis. Mastoid air cells: Unremarkable as visualized. No mastoid effusion. Orbits: Unremarkable as visualized. IMPRESSION: No evidence of acute intracranial pathology. Small partially calcified and minimally enhancing lesion in the posterior septum pellucidum. The differential diagnosis includes atypical meningioma or central neurocytoma. Electronically signed by: Nola Johnson MD 04/14/25 22:36 PM Medications Administered Administered Medications Discontinued Medications Gadobutrol (Gadobutrol 65ml Vial) 6.3 ml IV ONCE ONE Stop: 04/14/25 20:59 Last Admin: 04/14/25 20:59 Dose: 6.3 ml Documented By: [facility] Sodium Chloride (Nss) 1,000 mls @ 999 mls/hr IV .Q1H1M ONE Stop: 04/14/25 19:10 Last Infusion: 04/14/25 19:38 Dose: Infused Documented By: Admin: 04/14/25 18:33 Dose: 999 mls/hr Documented By: RANDY Ioversol (Optiray 320 125ml) 115 ml IV ONCE ONE Stop: 04/14/25 18:37 Last Admin: 04/14/25 18:36 Dose: 115 ml Documented By: KATHE ECG Additional Comments: Normal sinus rhythm
--- NOTE | 2025-04-15 15:42 | Electrocardiogram Report ---
Test Reason : Blood Pressure : */* mmHG Vent. Rate : 71 BPM Atrial Rate : 71 BPM P-R Int : 150 ms QRS Dur : 86 ms QT Int : 402 ms P-R-T Axes : 67 20 57 degrees QTcB Int : 436 ms Normal sinus rhythm Normal ECG When compared with ECG of 11-Nov-2020 10:46, No significant change was found Confirmed by Charan Mcdaniel ([id number]) on 04/15/2025 3:42:38 PM Referred By: REFERRED SELF Confirmed By: Charan Mcdaniel
--- NOTE | 2025-04-15 17:13 | Electroencephalogram ---
EEG Procedure Note Date of Service April 15, 2025 Start / End Times Start Time: 6:42 AM End Time: 7:02 AM Referring Physician Sammie History Acute confusional state Home Medication List Medication Instructions Recorded Confirmed Type aspirin 81 mg tablet,delayed 81 mg PO DAILY 05/23/21 04/14/25 History release (Adult Aspirin Regimen) vitamin B complex-folic acid ER tab PO 02/04/23 11/03/24 History 400 mcg tablet,extended release mecobalamin (vitamin B12) 1,000 500 mcg PO DAILY 02/05/23 04/14/25 History mcg chewable tablet tamsulosin 0.4 mg capsule 0.4 mg PO DAILY #90 caps 06/30/24 11/03/24 Rx lisinopril 5 mg tablet 5 mg PO DAILY #90 tabs 09/25/24 04/14/25 Rx atorvastatin 80 mg tablet 80 mg PO DAILY #90 tabs 10/12/24 04/14/25 Rx metoprolol succinate 50 mg 50 mg PO DAILY #90 tabs 12/31/24 Rx tablet,extended release 24 hr Inpatient Medication List Aspirin (Aspirin 81 Mg Ectab) 81 mg PO DAILY MIRELA Stop: 05/15/25 08:59 Last Admin: 04/15/25 08:17 Dose: 81 mg Documented By: LMP Atorvastatin Calcium (Atorvastatin 40 Mg Tab) 80 mg PO DAILY MIRELA Stop: 05/15/25 08:59 Last Admin: 04/15/25 08:17 Dose: 80 mg Documented By: LMP Cyanocobalamin (Cyanocobalamin 1000 Mcg/Ml Vial) 1,000 mcg IM QAM MIRELA Stop: 04/19/25 09:01 Last Admin: 04/15/25 08:19 Dose: 1,000 mcg Documented By: LMP Lisinopril (Lisinopril 5 Mg Tab) 5 mg PO DAILY MIRELA Stop: 05/15/25 08:59 Last Admin: 04/15/25 08:18 Dose: 5 mg Documented By: LMP Discontinued Medications Gadobutrol (Gadobutrol 65ml Vial) 6.3 ml IV ONCE ONE Stop: 04/14/25 20:59 Last Admin: 04/14/25 20:59 Dose: 6.3 ml Documented By: [facility] Sodium Chloride (Nss) 1,000 mls @ 999 mls/hr IV .Q1H1M ONE Stop: 04/14/25 19:10 Last Infusion: 04/14/25 19:38 Dose: Infused Documented By: Admin: 04/14/25 18:33 Dose: 999 mls/hr Documented By: RANDY Ioversol (Optiray 320 125ml) 115 ml IV ONCE ONE Stop: 04/14/25 18:37 Last Admin: 04/14/25 18:36 Dose: 115 ml Documented By: KATHE Description This is a 21 electrode EEG with a single channel dedicated to limited EKG. The electrodes were placed in accordance with the International 10-20 system. There is a posterior dominant rhythm of 15 Hz which is symmetrically distributed and attenuates with eye opening. There is a normal anterior to posterior org anization. Photic stimulation is unremarkable. Hyperventilation is not performed. There is a symmetric frontal beta rhythm. Right frontal delta and theta slowing is seen throughout the beginning of the study, and appears to resolve after photic stimulation. There are no epileptiform abnormalities. Interpretation Marginally abnormal awake/drowsy EEG with right frontal slowing potentially indicating an underlying structural abnormality. Correlate with neuroimaging. No epileptiform abnormalities observed. [facility] EEG Procedure Codes Indication for Procedure (1) Brain lesion: (2) Concussion: (3) Acute confusional state: (4) Seizure-like activity: Neurology Neurology: 75050 EEG include record awake & drowsy
[2025-04-15] MEDS: ACETAMINOPHEN 500 MG TAB PO PRN (20:10)
[2025-04-16 07:38] VITALS: BP 126/60; RESP 16; TEMP 97.7; O2SAT 98
[2025-04-16 09:24] LABS: Anion Gap 7.0 (3-11); Blood Urea Nitrogen 21.0 mg/dl (6-23); Calcium 8.7 mg/dl (8.6-10.3); Carbon Dioxide 26.0 mmol/L (21-32); Chloride 107.0 mmol/L (98-107); Creatinine Clr Calc Pharmacy 46.5 ml/min; Glucose 148.0 mg/dl (70-99(Fasting)); Potassium 3.9 mmol/L (3.5-5.1); Sodium 140.0 mmol/L (136-145)
--- NOTE | 2025-04-16 10:22 | Neurology Progress Note ---
Date of Service April 16, 2025 Assessment & Plan (1) Acute confusional state: (2) Concussion: (3) Brain lesion: Plan 75-year-old male with medical history significant for neck pain, degenerative disc disease, mild cognitive impairment, presented the emergency room with an episode of acute confusion which is now resolved. Altered mental status most likely secondary to head injury due to fall since patient sustained a fall 4 days prior to the admission which was associated with dizziness, headaches and mild confusion. No focal deficits on exam on arrival to the emergency room. Altered mental status has now resolved and patient is almost back to the baseline. MRI of the brain with and without contrast is negative for acute intracranial pathology. MRI of the brain showed incidental brain lesion which most likely meningioma. This will be followed up with neurosurgery as outpatient. Head CT did not show any acute intracranial pathology except for the lesion as described in the MRI of the brain CT angiogram of the head and neck did not show hemodynamically significant stenosis EKG showed normal sinus rhythm Strict control of blood pressure and blood glucose Continue home medications PT/OT EEG did not show any seizure activity and was normal 2D echocardiogram showed left ventricular ejection fraction 65% with no evidence of thrombus. Neurochecks every 4 hours Continue medical management per primary team Plan discussed in detail with the patient , and the nursing staff Plan also communicated with the primary attending Dr. Lawler via [place] text Time Spent min) 30 minutes Comment Total time includes patient contact, chart review, counseling, note preparation *Disclaimer: This note was generated using [employer] dictation software. Any typographical errors are unintentional and attributed to errors in voice recognition. If there are any areas of the note that do not make sense, please contact me for clarification. Subjective Telehealth Information After establishing a telemedicine visit, patient was verified with two unique identifiers. Patient (or authorized healthcare senior account representative) acknowledged consent and understanding and gave permission to continue telemedicine session. Denies any new complaints Review of Systems Constitutional symptoms, eyes, ears, nose, throat, cardiovascular, respiratory, gastrointestinal, genitourinary, musculoskeletal, endocrine, hematologic, and psychiatric review of systems are negative about the chief complaint, except as detailed in the present illness. Physical Exam Neuro Exam Mentation and Language Alert and oriented to person, place, time and situation. There is no apparent deficit of comprehensionfluent speech without word-finding difficulty or dysarthria. The affect appears appropriate. Cranial Nerves CN 11-X11 intact. Except. Cranial nerve VIIIhearing deficit bilaterally Motor There is appropriate bulk throughout. Tone is normal. There is no resting tremor or other extraneous movements. Strength is graded 5/5 throughout the upper and lower extremities bilaterally. Sensation Intact to light touch, vibration, proprioception, temperature, pinprick bilaterally Coordination There is no dysmetria with finger nose finger Gait and Station Deferred due to patient safety reasons. 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 0 Visual field testing: Partial hemianopia = 0 Facial paresis: Normal symmetric movement = 0. Motor function left arm: Normal = . 0 Motor function right arm: Normal = 0 Motor function l normal = 0 Motor function right leg: Normal = 0 Limb ataxia = 0 Best language: No aphasia. = . 0 Dysarthria: = 0 Extinction and inattention: Normal = 0 Total score 0 Results & Data Vital Signs (Past 12 Hours) Vital Signs Temp Pulse Resp BP Pulse Ox Pulse Ox O2 Del Method 04/16/25 07:19 36.5 C 74 16 126/60 98 Room Air 04/16/25 03:44 36.9 C 79 18 130/73 97 Room Air 04/16/25 01:28 97 04/15/25 23:59 36.5 C 60 18 121/74 97 Room Air Laboratory Results 04/14/25 04/14/25 04/14/25 Unknown 18:31 18:30 WBC 8.28 RBC 4.06 L Hgb 12.6 L Hct 36.3 L MCV 89.4 MCH 31.0 MCHC 34.7 RDW Std Deviation 41.7 RDW Coeff of Terese 12.7 Plt Count 167 MPV 8.9 L Immature Gran % (Auto) 0.2 Neut % (Auto) 79.6 Lymph % (Auto) 12.4 [place] % (Auto) 6.8 Eos % (Auto) 0.6 Baso % (Auto) 0.4 Neut # (Auto) 6.59 H Lymph # (Auto) 1.03 L [place] # (Auto) 0.56 Eos # (Auto) 0.05 Baso # (Auto) 0.03 Immature Gran # (Auto) 0.02 PT 19.3 H INR 1.9 H APTT 27 PTT Ratio 1.0 Sodium 133 L Potassium 4.0 Chloride 102 Carbon Dioxide 24 Anion Gap 7 BUN 23 Creatinine 1.17 Est Cr Clr Drug Dosing 48.5 eGFR 64.61 BUN/Creatinine Ratio 19.7 Glucose 98 POC Glucose 87 Calcium 8.7 Magnesium 1.7 Total Bilirubin 0.6 AST 20 ALT 20 Alkaline Phosphatase 37 Troponin I High Sens 6.7 Total Protein 6.3 Albumin 3.6 Globulin 2.7 Albumin/Globulin Ratio 1.3 Urine Color Yellow Urine Appearance Clear Urine pH 6.0 Ur Specific [place] 1.027 Urine Protein Negative Urine Glucose (UA) Negative Urine Ketones Trace H Urine Blood Negative Urine Nitrite Negative Urine Bilirubin Negative Urine Urobilinogen Negative Ur Leukocyte Esterase Negative Urine Comment Diagnostic Findings Chest CTA 04/14/25 18:10 CT pulmonary angiogram without and with IV contrast. History: Severe left shoulder pain. Confusion. COMPARISON: Plain film correlate November 11, 2020. TECHNIQUE: CT angiography of the chest was performed without IV contrast followed by IV contrast, including 3D post processing CTA image reconstruction. FINDINGS: Program Trainer film demonstrates no appreciated abnormality. Lung windows demonstrate mild dependent subsegmental atelectasis. Lungs are otherwise clear. Soft tissue windows demonstrate dense calcified atherosclerotic changes coronary vasculature. Mild calcified atheromatous changes thoracic aorta without aneurysmal dilatation or dissection. Heart size is within normal limits. Pulmonary vasculature limited secondary to bolus timing. No gross abnormality at these levels. No pericardial or pleural effusions. No atheromatous changes included systemic vasculature. No acute process of the included upper abdomen. Bone windows demonstrate degenerative changes of the thoracic spine. No acute osseous process. IMPRESSION: 1. Mild atheromatous changes thoracic and included abdominal aorta without aneurysmal dilatation or dissection. 2. Dense calcified atherosclerotic changes coronary vasculature. No additional findings to indicate source of patient's symptoms. Electronically signed by Prince Mccullough 04-14-2025 7:[address] 04/14/25 18:10 EXAM: Head CT without contrast and CT angiogram of the head and neck. History: Patient complains that head feels tight. Confusion. Comparison: MR brain correlate February 15, 2022. Study report not available at the time of dictation. Technique: HEAD CT: Using multidetector thin collimation helical acquisition technique, axial, coronal and sagittal CT images from the skull base to the vertex were obtained without intravenous contrast. HEAD and NECK CTA: During rapid bolus intravenous injection of nonionic contrast material, axial images were obtained using thin collimation multidetector helical technique from the base of the neck through the of vertex of the head. This CT angiogram data was reconstructed at thin intervals with mild overlap. 3D reconstructions were obtained. The axial source images, multiplanar reformations, 3D reconstructions in both maximum intensity projection display and volume rendered models were reviewed. Dose reduction techniques were achieved by using automatic exposure control and/or adjustment of mA and/or kV according to patient size and/or use of iterative reconstruction technique. FINDINGS: Program Trainer film demonstrates no abnormality. Brain windows demonstrate there is a 1.3 cm greatest dimension focal hyperdensity along the posterior aspect of the septum pellucidum just ventral to the splenium of the corpus callosum. Ventricles and sulci are within normal limits for patient's age. Small hypodensities left subinsular white matter. These are nonspecific. No appreciable mass effect. Basal cisterns are patent. No additional hemorrhage, mass or acute large territorial infarct. No midline shift. Lung windows demonstrate clear included pulmonary apices. Soft tissue windows demonstrate prominent soft tissue volume and attenuation left parietal scalp. No discrete laceration or faustino hematoma. Vascular windows demonstrate portions of the exam to be limited secondary to dental amalgam artifact. Bilateral V4 segments are patent. Bilateral posterior inferior cerebellar arteries are patent. Basilar artery is patent. Bilateral posterior cerebral arteries are patent. Calcified atherosclerotic changes cavernous sinus internal carotid arteries. No appreciated significant hemodynamically flow-limiting disease. Anterior cerebral arteries are patent. Middle cerebral arteries are patent. Posterior communicating arteries are not identified. Normal 3 branches of the thoracic aorta noted. Dominant left vertebral artery. Bilateral vertebral arteries are patent. Moderate calcified atheromatous plaque right carotid bulb. No flow-limiting disease. Additional mild calcified atheromatous plaque left carotid vasculature. Bilateral common carotid, internal carotid and external carotid arteries are otherwise patent. Although limited due to bolus timing major dural venous sinuses are patent. No discrete abnormal intracranial enhancement. Particular at the level of the above-described posterior septum pellucid him hyperdensity. Bone windows demonstrate multilevel degenerative changes of the spine. Moderate spinal canal and moderate to marked foraminal stenoses. Impression: 1. Indeterminant nodular hyperdensity along the dorsal septum pellucidum. Focal hemorrhage cannot be excluded. Meningioma not excluded. Consider 6-hour follow-up noncontrast head CT or MRI. 2. Small left subinsular white matter hypodensities. These are nonspecific. Small acute infarcts cannot entirely be excluded. No appreciable mass effect. MRI would be helpful for further characterization. 3. No large vessel occlusion. 4. Calcified atheromatous plaque systemic neck vasculature without significant flow-limiting disease. 5. Hypoplastic bilateral posterior communicating arteries. Intracranial systemic vasculature is otherwise patent. 6. Although limited due to bolus timing no discrete enhancement of the above-described posterior septum pellucidum nodular hyperdensity. 7. Focal area of soft tissue scalp swelling left parietal region. No radiopaque foreign body or discrete laceration. Correlate with prior trauma history. 8. Multilevel degenerative changes of the spine. Moderate spinal canal and moderate to marked foraminal stenoses. MRI would be helpful for further characterization. Critical results were discussed with Dr. Shaver on April 14, 2025 at 1755 hrs. Central standard time. The study was analyzed using artificial intelligence software for large vessel occlusion detection. Electronically signed by Prince Mccullough 04-14-2025 7:02 PM Head CTA 04/14/25 18:10 EXAM: Head CT without contrast and CT angiogram of the head and neck. History: Patient complains that head feels tight. Confusion. Comparison: MR brain correlate February 15, 2022. Study report not available at the time of dictation. Technique: HEAD CT: Using multidetector thin collimation helical acquisition technique, axial, coronal and sagittal CT images from the skull base to the vertex were obtained without intravenous contrast. HEAD and NECK CTA: During rapid bolus intravenous injection of nonionic contrast material, axial images were obtained using thin collimation multidetector helical technique from the base of the neck through the of vertex of the head. This CT angiogram data was reconstructed at thin intervals with mild overlap. 3D reconstructions were obtained. The axial source images, multiplanar reformations, 3D reconstructions in both maximum intensity projection display and volume rendered models were reviewed. Dose reduction techniques were achieved by using automatic exposure control and/or adjustment of mA and/or kV according to patient size and/or use of iterative reconstruction technique. FINDINGS: Program Trainer film demonstrates no abnormality. Brain windows demonstrate there is a 1.3 cm greatest dimension focal hyperdensity along the posterior aspect of the septum pellucidum just ventral to the splenium of the corpus callosum. Ventricles and sulci are within normal limits for patient's age. Small hypodensities left subinsular white matter. These are nonspecific. No appreciable mass effect. Basal cisterns are patent. No additional hemorrhage, mass or acute large territorial infarct. No midline shift. Lung windows demonstrate clear included pulmonary apices. Soft tissue windows demonstrate prominent soft tissue volume and attenuation left parietal scalp. No discrete laceration or faustino hematoma. Vascular windows demonstrate portions of the exam to be limited secondary to dental amalgam artifact. Bilateral V4 segments are patent. Bilateral posterior inferior cerebellar arteries are patent. Basilar artery is patent. Bilateral posterior cerebral arteries are patent. Calcified atherosclerotic changes cavernous sinus internal carotid arteries. No appreciated significant hemodynamically flow-limiting disease. Anterior cerebral arteries are patent. Middle cerebral arteries are patent. Posterior communicating arteries are not identified. Normal 3 branches of the thoracic aorta noted. Dominant left vertebral artery. Bilateral vertebral arteries are patent. Moderate calcified atheromatous plaque right carotid bulb. No flow-limiting disease. Additional mild calcified atheromatous plaque left carotid vasculature. Bilateral common carotid, internal carotid and external carotid arteries are otherwise patent. Although limited due to bolus timing major dural venous sinuses are patent. No discrete abnormal intracranial enhancement. Particular at the level of the above-described posterior septum pellucid him hyperdensity. Bone windows demonstrate multilevel degenerative changes of the spine. Moderate spinal canal and moderate to marked foraminal stenoses. Impression: 1. Indeterminant nodular hyperdensity along the dorsal septum pellucidum. Focal hemorrhage cannot be excluded. Meningioma not excluded. Consider 6-hour follow-up noncontrast head CT or MRI. 2. Small left subinsular white matter hypodensities. These are nonspecific. Small acute infarcts cannot entirely be excluded. No appreciable mass effect. MRI would be helpful for further characterization. 3. No large vessel occlusion. 4. Calcified atheromatous plaque systemic neck vasculature without significant flow-limiting disease. 5. Hypoplastic bilateral posterior communicating arteries. Intracranial systemic vasculature is otherwise patent. 6. Although limited due to bolus timing no discrete enhancement of the above-described posterior septum pellucidum nodular hyperdensity. 7. Focal area of soft tissue scalp swelling left parietal region. No radiopaque foreign body or discrete laceration. Correlate with prior trauma history. 8. Multilevel degenerative changes of the spine. Moderate spinal canal and moderate to marked foraminal stenoses. MRI would be helpful for further characterization. Critical results were discussed with Dr. Shaver on April 14, 2025 at 1755 hrs. Central standard time. The study was analyzed using artificial intelligence software for large vessel occlusion detection. Electronically signed by Prince Mccullough 04-14-2025 7:03 PM Neck CTA 04/14/25 18:10 EXAM: Head CT without contrast and CT angiogram of the head and neck. History: Patient complains that head feels tight. Confusion. Comparison: MR brain correlate February 15, 2022. Study report not available at the time of dictation. Technique: HEAD CT: Using multidetector thin collimation helical acquisition technique, axial, coronal and sagittal CT images from the skull base to the vertex were obtained without intravenous contrast. HEAD and NECK CTA: During rapid bolus intravenous injection of nonionic contrast material, axial images were obtained using thin collimation multidetector helical technique from the base of the neck through the of vertex of the head. This CT angiogram data was reconstructed at thin intervals with mild overlap. 3D reconstructions were obtained. The axial source images, multiplanar reformations, 3D reconstructions in both maximum intensity projection display and volume rendered models were reviewed. Dose reduction techniques were achieved by using automatic exposure control and/or adjustment of mA and/or kV according to patient size and/or use of iterative reconstruction technique. FINDINGS: Program Trainer film demonstrates no abnormality. Brain windows demonstrate there is a 1.3 cm greatest dimension focal hyperdensity along the posterior aspect of the septum pellucidum just ventral to the splenium of the corpus callosum. Ventricles and sulci are within normal limits for patient's age. Small hypodensities left subinsular white matter. These are nonspecific. No appreciable mass effect. Basal cisterns are patent. No additional hemorrhage, mass or acute large territorial infarct. No midline shift. Lung windows demonstrate clear included pulmonary apices. Soft tissue windows demonstrate prominent soft tissue volume and attenuation left parietal scalp. No discrete laceration or faustino hematoma. Vascular windows demonstrate portions of the exam to be limited secondary to dental amalgam artifact. Bilateral V4 segments are patent. Bilateral posterior inferior cerebellar arteries are patent. Basilar artery is patent. Bilateral posterior cerebral arteries are patent. Calcified atherosclerotic changes cavernous sinus internal carotid arteries. No appreciated significant hemodynamically flow-limiting disease. Anterior cerebral arteries are patent. Middle cerebral arteries are patent. Posterior communicating arteries are not identified. Normal 3 branches of the thoracic aorta noted. Dominant left vertebral artery. Bilateral vertebral arteries are patent. Moderate calcified atheromatous plaque right carotid bulb. No flow-limiting disease. Additional mild calcified atheromatous plaque left carotid vasculature. Bilateral common carotid, internal carotid and external carotid arteries are otherwise patent. Although limited due to bolus timing major dural venous sinuses are patent. No discrete abnormal intracranial enhancement. Particular at the level of the above-described posterior septum pellucid him hyperdensity. Bone windows demonstrate multilevel degenerative changes of the spine. Moderate spinal canal and moderate to marked foraminal stenoses. Impression: 1. Indeterminant nodular hyperdensity along the dorsal septum pellucidum. Focal hemorrhage cannot be excluded. Meningioma not excluded. Consider 6-hour follow-up noncontrast head CT or MRI. 2. Small left subinsular white matter hypodensities. These are nonspecific. Small acute infarcts cannot entirely be excluded. No appreciable mass effect. MRI would be helpful for further characterization. 3. No large vessel occlusion. 4. Calcified atheromatous plaque systemic neck vasculature without significant flow-limiting disease. 5. Hypoplastic bilateral posterior communicating arteries. Intracranial systemic vasculature is otherwise patent. 6. Although limited due to bolus timing no discrete enhancement of the above-described posterior septum pellucidum nodular hyperdensity. 7. Focal area of soft tissue scalp swelling left parietal region. No radiopaque foreign body or discrete laceration. Correlate with prior trauma history. 8. Multilevel degenerative changes of the spine. Moderate spinal canal and moderate to marked foraminal stenoses. MRI would be helpful for further characterization. Critical results were discussed with Dr. Shaver on April 14, 2025 at 1755 hrs. Central standard time. The study was analyzed using artificial intelligence software for large vessel occlusion detection. Electronically signed by Prince Mccullough 04-14-2025 7:03 PM Brain MRI 04/14/25 20:06 Exam(s): MRI HEAD W/WO Contrast IV Amt: 6.3cc gadavist EXAM: MR Head Without and With Intravenous Contrast CLINICAL HISTORY: Reason for exam: stroke like sx/confusion, eval hyperdensity. OTHER: Other Notes: 6.3CC GADAVIST INJ. LEFT IV AT 2054 HRS. BY [facility] R/O CVA CONFUSION PROP SCANS FOR MOTION TECHNIQUE: Magnetic resonance images of the head/brain without and with intravenous contrast in multiple planes. CONTRAST: Patient received 6.3cc gadavist of IV contrast COMPARISON: Prior head CT from April 14, 2025. FINDINGS: Brain: There is a partially calcified soft tissue lesion in the posterior septum pellucidum with minimal enhancement. No hemorrhage. No acute infarct. The flow voids at the base the brain are intact. No evidence of abnormal enhancement. The dural venous sinuses are patent. Ventricles: Unremarkable advanced ventriculomegaly. Bones/joints: Unremarkable. No acute fracture. Sinuses: Chronic ethmoid sinusitis. No acute sinusitis. Mastoid air cells: Unremarkable as visualized. No mastoid effusion. Orbits: Unremarkable as visualized. IMPRESSION: No evidence of acute intracranial pathology. Small partially calcified and minimally enhancing lesion in the posterior septum pellucidum. The differential diagnosis includes atypical meningioma or central neurocytoma. Electronically signed by: Nola Johnson MD 04/14/25 22:36 PM Medications Administered Administered Medications Discontinued Medications Gadobutrol (Gadobutrol 65ml Vial) 6.3 ml IV ONCE ONE Stop: 04/14/25 20:59 Last Admin: 04/14/25 20:59 Dose: 6.3 ml Documented By: [facility] Sodium Chloride (Nss) 1,000 mls @ 999 mls/hr IV .Q1H1M ONE Stop: 04/14/25 19:10 Last Infusion: 04/14/25 19:38 Dose: Infused Documented By: Admin: 04/14/25 18:33 Dose: 999 mls/hr Documented By: RANDY Ioversol (Optiray 320 125ml) 115 ml IV ONCE ONE Stop: 04/14/25 18:37 Last Admin: 04/14/25 18:36 Dose: 115 ml Documented By: KATHE ECG Additional Comments: Normal sinus rhythm
--- NOTE | 2025-04-16 11:33 | Discharge Summary ---
Discharge Summary Date of Service April 16, 2025 Principal Dx & Hospital Course #1 = Principal Diagnosis (1) Altered mental status, unspecified: Probably due to concussion suffered when he fell and struck his head several days prior to admission. No evidence of CVA. EEG is negative for any epileptiform activity. Appreciate neurology consultation and recommendations (2) Anemia: Mild on admission. No evidence of GI bleeding. Outpatient follow-up (3) Vitamin B12 deficiency: Stable. Continue current supplementation (4) Hyponatremia: Mild on admission. Now normal. No further evaluation needed Plan Home today, April 16. No new medications. Follow-up with primary care provider soon as possible. He was instructed not to drive alone until cleared by his PCP. He was also instructed to return to the ED for reevaluation if any new symptoms develop from a neurological standpoint. Admission HPI Per Admitting Provider 75-year-old male PMHx HTN, CAD, HLD, CAD, MCI, and BPH presenting for concerns of confusion as reported by the patient's at 1400. Patient's , Sahra, helps to provide a majority of the history. States that the patient was in normal health and acting as expected throughout the morning of arrival. They had recently moved out of their old home and moved 10 houses down to a new home, so they are still in the process of moving items from 1 building to the next. His states that at 1400 the patient decided that he was going to drive down to the old house to collect some items to bring back to the new house. She recalls that approximately 2 hours after he had initially left, she was concerned because she had not heard from him or seeing the vehicle. She called him at approximately 1600 and the patient stated "I do not know where I am at, my head feels off". She went to find the patient and called the ambulance room to the hospital. He states he does not remember any events leading up to or following this lapse in memory, stating that the next thing he remembered was being at the hospital. He still feels slightly confused at present, but his states that he has been improving some. He does admit that approximately 2 days [employer] he was dealing with dizziness, described as vertigo, and he remembers hitting the left side of his head. He is unable to tell me if he fell and hit his head or if he smacked his head off of something else, he just states that it was hurting him after that. He also complains of posterior L shoulder pain that is rather pinpoint to 1 area, but again does not remember hitting this region. His states that throughout this episode she did not notice any jerking-like movements to indicate a seizure, no lipsmacking or auditory expressions. No facial droop or dysarthria noted. The patient was without focal deficits throughout this time. He stated that he possibly felt overall weak but this was around a day prior to the arrival. He is without chest pain, shortness of breath, palpitations, abdominal pain, N/V/D/C, numbness/tingling, fever/chills, URI symptoms, LUTS, syncope, known fall, weight loss, headaches, or night sweats. He has never had this happen before. No prior CVA/TIA, no history of seizures. ED evaluation revealed CBC without leukocytosis or leukopenia, H&H 12.6/36.3; PT/INR 19.3/1.9; CMP sodium 133; troponin 6.7; UA without infection; chest CTA mild atheromatous changes thoracic and included abdominal aorta without aneurysmal dilatation or dissection, dense calcified atherosclerotic changes coronary vasculature; head CT/CTA head and neck CTA indeterminate nodular hyperdensity along dorsal septum pellucidum, focal hemorrhage not excluded, meningioma not excluded, small L subinsular white matter hypodensities, no large vessel occlusion, calcified atheromatous plaque systemic neck vasculature without significant flow-limiting disease, hypoplastic bilateral posterior communicating arteries, focal area of soft tissue scalp swelling L parietal region, multilevel degenerative changes of the spine; brain MRI no evidence of acute intracranial pathology, small partially calcified minimally enhancing lesion in the posterior septum pellucidum (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 Please see Dr. Nguyen's attestation for adjustments/additions to treatment plan. Discharge Exam General-alert and oriented x3, no fever, no chills HEENT-head atraumatic and normocephalic, pupils equal and reactive to light, extraocular muscles intact Neck-no lymphadenopathy or thyromegaly, trachea midline Chest-clear to auscultation. No rales, wheezing or rhonchi Cardiac-regular rate and rhythm, normal S1 and S2 Abdomen-normal bowel sounds, no hepatosplenomegaly Extremities-no cyanosis, clubbing, or edema Neuro-cranial nerves II through XII intact, motor and sensory function within normal limits, strength symmetrical, no focal deficits Psych-normal affect, normal mood Discharge Plan Discharge Items Patient Disposition: Home - Self-Care Reason For Visit: AMS Discharge Diagnosis: Probable cerebral concussion with memory loss due to closed head injury Condition on Discharge: Good Activity: Resume your previous activity Non-emergency contact: Primary Care Provider Call non-emergency contact if: your symptoms worsen Follow-up/Referrals: Ovidio Lin, [Primary Care Provider] - Diet: Regular and Heart Healthy Addtl Attending Provider Instructions: All medications remain the same. Do not drive alone until cleared by primary care provider. See primary care provider soon as possible for follow-up Pending Studies at Discharge: No Stand-Alone Forms: My Whisper, Smoking Cessation Medications and DC Order Prescriptions: Continued mecobalamin (vitamin B12) 1,000 mcg tablet,chewable 500 mcg PO DAILY tamsulosin 0.4 mg capsule 0.4 mg PO DAILY Qty: 90 3RF lisinopril 5 mg tablet 5 mg PO DAILY Qty: 90 3RF atorvastatin 80 mg tablet 80 mg PO DAILY Qty: 90 3RF metoprolol succinate 50 mg tablet extended release 24 hr 50 mg PO DAILY Qty: 90 3RF aspirin [Adult Aspirin Regimen] 81 mg tablet,delayed release (DR/EC) 81 mg PO DAILY vitamin B complex-folic acid 400 mcg tablet extended release PO Discharge Orders: Discharge Order (Routine); Ordered 04/16/25 Ordered By: Prosper Lawler Admission Data Admit Date/Time: 04/14/25 23:26 Attending Provider: Prosper Lawler Admit Provider: Deysi Nguyen Primary Care Provider: Ovidio Lin Other Providers: Deysi Nguyen; [facility] Stay Data Consultations 04/14/25 22:58 ED Decision to Admit Stat 04/15/25 01:28 Consult Neurology Routine Diagnostic Imagining Performed 04/14/25 18:10 CT angio chest dissec wo/w con Stat CT angio head w con Stat CT angio neck with con Stat CT head/brain wo con Stat 04/14/25 20:06 MR brain wo/w con Stat Pending Results Patient Have Any Pending Studies at Discharge: No Discharge Instructions Given to Patient (Per Discharging Provider) All medications remain the same. Do not drive alone until cleared by primary care provider. See primary care provider soon as possible for follow-up Total Time Total Time Spent Total Time Spent (In Minutes): 45 minutes. Total time included patient exam, discharge planning, medication reconciliation, and communication with other providers. Coding Level of Care Code 73268 INP/OBS DISCH >30 MIN Diagnoses Altered mental status, unspecified R41.82 Anemia D64.9 Vitamin B12 deficiency E53.8 Hyponatremia E87.1
[2025-04-16 12:07] VITALS: PULSE 58
== END 2025-04-16 12:39 | disposition home or self-care (01) | DRG 89 ==
LOC: ED 17:52 → INTOOBSV 23:26 → 2S 23:26 → SUATTDRO 23:26 → 2S 04-15 00:55